=== PATIENT | female | born 1965 | race Caucasian/White ===

== ENCOUNTER → 2016-09-16 | Outpatient (CLI) | payer BC ==
--- NOTE | 2016-09-16 15:54 | US ---
EXAMINATION TYPE: US pelvic complete DATE OF EXAM: 09/16/2016 COMPARISON: Previous study dated 03/01/2016. CLINICAL HISTORY: N92.4 Preclimacteric menorrhagia. Endometrial thickness. TECHNIQUE: Transvaginal (TV) and Transabdominal (TA) Date of LMP: 01/30/2017 EXAM MEASUREMENTS: Uterus: 8.8 x 4.1 x5.3 cm Endometrial Stripe: 0.73 cm Right Ovary: 2.1x 4.0 x 11.1 cm Left Ovary: 3.0 x 1.5 x 2.6 cm Heterogenous uterus, nabothian cysts and calcifications visualized in cervix. 1. Uterus: Anteverted Heterogenous. 2. Endometrium: wnl 3. Right Ovary: wnl 4. Left Ovary: wnl Spectral, color and waveform doppler imaging shows good arterial and venous flow within the ovaries ; there is no evidence for ovarian torsion. 5. Bilateral Adnexa: wnl 6. Posterior cul-de-sac: wnl IMPRESSION: 1. UTERUS IS HETEROGENOUS. I COULD NOT EXCLUDE SOME DEGREE OF ADENOMYOSIS. 2. NABOTHIAN CYSTS IN BOTH LIPS OF THE CERVIX.
== END | disposition home or self-care (01) ==
LOC: RADUSWWP 14:20
PROVIDERS: ATTEND Family Medicine
DX: N88.8 Other specified noninflammatory disorders of cervix uteri (principal)
CPT/HCPCS: 76830; 76856

== ENCOUNTER → 2016-10-19 | Outpatient (CLI) | payer BC ==
--- NOTE | 2016-10-19 09:32 | US ---
EXAMINATION TYPE: US carotid duplex BILAT DATE OF EXAM: 10/19/2016 COMPARISON: NONE CLINICAL HISTORY: 51-year-old female with R09.89 BRUIT. On medication for HTN. TECHNIQUE: Carotid duplex ultrasound examination. Indirect Doppler criteria was utilized. FINDINGS: There is [id number] atherosclerotic change at the right bifurcation and mild at the left bifurc ation. EXAM MEASUREMENTS: RIGHT: Peak Systolic Velocity (PSV) cm/sec ----- Right CCA: 95.3 ----- Right ICA: 83.1 ----- Right ECA: 96.3 ICA/CCA ratio: 0.9 RIGHT: End Diastole cm/sec ----- Right CCA: 43.0 ----- Right ICA: 36.9 ----- Right ECA: 31.4 LEFT: Peak Systolic Velocity (PSV) cm/sec ----- Left CCA: 83.0 ----- Left ICA: 79.2 ----- Left ECA: 63.6 ICA/CCA ratio: 1.0 LEFT: End Diastole cm/sec ----- Left CCA: 34.5 ----- Left ICA: 41.3 ----- Left ECA: 14.2 VERTEBRALS (direction of flow): Right Vertebral: Antegrade Left Vertebral: Antegrade IMPRESSION: No hemodynamically significant stenosis appreciated in either internal carotid artery. Criteria for Assigning % of Stenosis / Diameter reduction (Estimation based on the indirect measurements of the internal carotid artery velocities (ICA PSV). 1. Normal (no stenosis)=ICA PSV < 125 cm/s: ratio < 2.0: ICA EDV<40 cm/s. 2. Less than 50% stenosis=ICA PSV < 125 cm/s: ratio < 2.0: ICA EDV<40 cm/s. 3. 50 to 69% stenosis=ICA PSV of 125 to 230 cm/s: ration 2.0 ? 4.0: ICA EDV 40-100 cm/s. 4. Greater than 70% stenosis to near occlusion= ICA PSV > 230 cm/s: ratio > 4.0: ICA EDV > 100 cm/s. 5. Near occlusion= ICA PSV velocities may be low or undetectable: variable ratio and ICA EDV. 6. Total occlusion=unable to detect flow.
== END | disposition home or self-care (01) ==
LOC: RADUSWWP 08:16
PROVIDERS: ATTEND Family Medicine
DX: R09.89 Other specified symptoms and signs involving the circulatory and respiratory systems (principal)
CPT/HCPCS: 93880

== ENCOUNTER 2017-05-06 12:31 | Emergency (ER) | payer BC ==
--- NOTE | 2017-05-06 13:21 | ED ---
General Adult HPI - General Chief complaint: Abdominal Pain Stated complaint: Abd Pain Time Seen by Provider: 05/06/17 13:04 Source: patient, family, RN notes reviewed Mode of arrival: wheelchair Limitations: no limitations - History of Present Illness Initial comments: Patient's a 51-year-old female who presents emergency room today with chief complaint of left upper quadrant pain over the last 3 weeks. Patient does admit that it's been a constant pain at times worse. States does radiate around to the back. She does not that at times she's noticed it's worse with her breathing. She states feels better more comfortable when she takes shallow breaths. Patient does admit that she went to the family doctor's office yesterday have it checked out. She states that she was given order a CAT scan. She states that it was increased swelling. She denies any feels that makes it better or worse. Admits to being a daily drinker. Denies any complaints or symptoms. Patient denies any recent fever, chills, shortness of breath, chest pain, back pain, nausea or vomiting, numbness or tingling, dysuria or hematuria , constipation or diarrhea, headaches or visual changes, or any other complaints. - Related Data Home Medications Medication Instructions Recorded Confirmed Loratadine [Claritin] 10 mg PO QAM 10/09/14 05/06/17 Omeprazole [PriLOSEC] 20 mg PO AC-BRKFST 10/09/14 05/06/17 Cholecalciferol [Vitamin D3] 1,000 unit PO W/SUPPER 12/06/14 05/06/17 Losartan [Cozaar] 50 mg PO QAM 12/06/14 05/06/17 amLODIPine [Norvasc] 5 mg PO W/SUPPER 12/06/14 05/06/17 Cyanocobalamin (Vitamin B-12) 1,000 mcg PO W/SUPPER 05/06/17 05/06/17 [Vitamin B-12] Multivitamin/Iron/Folic Acid 1 tab PO W/SUPPER 05/06/17 05/06/17 [Centrum Adults Tablet] Simvastatin [Zocor] 20 mg PO W/SUPPER 05/06/17 05/06/17 Allergies Allergy/AdvReac Type Severity Reaction Status Date / Time hydrocodone bitartrate AdvReac Nausea Verified 05/06/17 13:13 [From Vicodin] propoxyphene napsylate AdvReac Nausea Verified 05/06/17 13:13 [From Darvocet-N] Review of Systems ROS Statement: Those systems with pertinent positive or pertinent negative responses have been documented in the HPI. ROS Other: All systems not noted in ROS Statement are negative. Past Medical History Past Medical History: Eye Disorder, GERD/Reflux, Hyperlipidemia, Hypertension Additional Past Medical History / Comment(s): hx cervical herniated discs C4-5 and C 6-7. hiatal hernia,eye drops to help prevent glaucoma, History of Any Multi-Drug Resistant Organisms: None Reported Past Surgical History: No Surgical Hx Reported Additional Past Surgical History / Comment(s): 2009 colonoscopy with benign bx, EGD, neck surgery Past Anesthesia/Blood Transfusion Reactions: Postoperative Nausea & Vomiting ( PONV) Additional Past Anesthesia/Blood Transfusion Reaction / Comment(s): no hx blood transfusion. Past Psychological History: No Psychological Hx Reported Smoking Status: Current every day smoker Past Alcohol Use History: Daily Past Drug Use History: None Reported - Past Family History Father Family Medical History: Osteoarthritis (OA) Additional Family Medical History / Comment(s): Father is alive and is 86 yrs old. Mother Family Medical History: Liver Disease, Myocardial Infarction (ME) Additional Family Medical History / Comment(s): Mother 05/2014 of cirrhosis of the liver- she was 71 yrs old. She had a couple of MIs. General Exam - General Exam Comments Initial Comments: General: The patient is awake and alert, in no distress, and does not appear acutely ill. Eye: Pupils are equal, round and reactive to light, extra-ocular movements are intact. No nystagmus. There is normal conjunctiva bilaterally. No signs of icterus. Ears, nose, mouth and throat: There are moist mucous membranes and no oral lesions. Neck: The neck is supple, there is no tenderness or JVD. Cardiovascular: There is a regular rate and rhythm. No murmur, rub or gallop is appreciated. Respiratory: Lungs are clear to auscultation, respirations are non-labored, breath sounds are equal. No wheezes, stridor, rales, or rhonchi. Gastrointestinal: Soft, non-distended. Mild tenderness of the upper quadrant. No rebound tenderness. No guarding. No CVA tenderness. Musculoskeletal: Normal ROM, no tenderness. Strength 5/5. Sensation intact. Pulses equal bilaterally 2+. Neurological: A&O x 3. CN II-XII intact, There are no obvious motor or sensory deficits. Coordination appears grossly intact. Speech is normal. Skin: Skin is warm and dry and no rashes or lesions are noted. Psychiatric: Cooperative, appropriate mood & affect, normal judgment. Limitations: no limitations Course Vital Signs 05/06/17 12:49 Temperature 98.7 F Pulse Rate 99 Respiratory 18 Rate Blood Pressure 123/77 O2 Sat by Pulse 99 Oximetry EKG Findings - EKG Comments: EKG Findings:: EKG performed at 1332: Shows normal sinus rhythm at 90 bpm. MT interval 118. QRS 88. QT/QTC 364/445. No acute ST changes. Medical Decision Making - Medical Decision Making Patient labs are been reviewed and are unremarkable. Negative d-dimer. Negative cardiac enzymes. EKG shows normal sinus rhythm. Patient's chest x- rays negative. Ultrasound shows a right liver hepatic cyst. No other acute abnormalities. No evidence for cholelithiasis or cholecystitis. Patient's CT of the abdomen and pelvis is negative. - Lab Data Result diagrams: 05/06/17 13:29 05/06/17 13:29 Lab Results 05/06/17 05/06/17 05/06/17 Range/Units 13:29 13:29 13:29 WBC 7.8 (3.8-10.6) k/uL RBC 4.43 (3.80-5.40) m/uL Hgb 13.7 (11.4-16.0) gm/dL Hct 43.2 (34.0-46.0) % MCV 97.6 (80.0-100.0) fL MCH 31.0 (25.0-35.0) pg MCHC 31.7 (31.0-37.0) g/dL RDW 12.4 (11.5-15.5) % Plt Count 356 (150-450) k/uL Neutrophils % 69 % Lymphocytes % 20 % Monocytes % 7 % Eosinophils % 2 % Basophils % 1 % Neutrophils # 5.4 (1.3-7.7) k/uL Lymphocytes # 1.6 (1.0-4.8) k/uL Monocytes # 0.5 (0-1.0) k/uL Eosinophils # 0.1 (0-0.7) k/uL Basophils # 0.1 (0-0.2) k/uL PT (9.0-12.0) sec INR (<1.2) APTT (22.0-30.0) sec D-Dimer (<0.60) mg/L FEU Sodium 143 (137-145) mmol/L Potassium 4.1 (3.5-5.1) mmol/L Chloride 104 (98-107) mmol/L Carbon Dioxide 30 (22-30) mmol/L Anion Gap 9 mmol/L BUN 11 (7-17) mg/dL Creatinine 0.58 (0.52-1.04) mg/dL Est GFR (MDRD) Af Amer >60 (>60 ml/min/1.73 sqM) Est GFR (MDRD) Non-Af >60 (>60 ml/min/1.73 sqM) Glucose 103 H (74-99) mg/dL Calcium 10.1 (8.4-10.2) mg/dL Total Bilirubin 0.5 (0.2-1.3) mg/dL AST 25 (14-36) U/L ALT 35 (9-52) U/L Alkaline Phosphatase 108 (38-126) U/L Total Creatine Kinase 94 (30-135) U/L CK-MB (CK-2) 0.8 (0.0-2.4) ng/mL CK-MB (CK-2) Rel Index 0.9 Troponin I <0.012 (0.000-0.034) ng/mL Total Protein 7.0 (6.3-8.2) g/dL Albumin 4.5 (3.5-5.0) g/dL Amylase 50 (30-110) U/L Lipase 65 (23-300) U/L Urine Color Urine Appearance (Clear) Urine pH (5.0-8.0) Ur Specific [place] (1.001-1.035) Urine Protein (Negative) Urine Glucose (UA) (Negative) Urine Ketones (Negative) Urine Blood (Negative) Urine Nitrite (Negative) Urine Bilirubin (Negative) Urine Urobilinogen (<2.0) mg/dL Ur Leukocyte Esterase (Negative) Urine RBC (0-5) /hpf Urine WBC (0-5) /hpf Ur Squamous Epith Cells (0-4) /hpf Amorphous Sediment (None) /hpf 05/06/17 05/06/17 Range/Units 13:29 14:42 WBC (3.8-10.6) k/uL RBC (3.80-5.40) m/uL Hgb (11.4-16.0) gm/dL Hct (34.0-46.0) % MCV (80.0-100.0) fL MCH (25.0-35.0) pg MCHC (31.0-37.0) g/dL RDW (11.5-15.5) % Plt Count (150-450) k/uL Neutrophils % % Lymphocytes % % Monocytes % % Eosinophils % % Basophils % % Neutrophils # (1.3-7.7) k/uL Lymphocytes # (1.0-4.8) k/uL Monocytes # (0-1.0) k/uL Eosinophils # (0-0.7) k/uL Basophils # (0-0.2) k/uL PT 10.0 (9.0-12.0) sec INR 1.0 (<1.2) APTT 23.9 (22.0-30.0) sec D-Dimer 0.28 (<0.60) mg/L FEU Sodium (137-145) mmol/L Potassium (3.5-5.1) mmol/L Chloride (98-107) mmol/L Carbon Dioxide (22-30) mmol/L Anion Gap mmol/L BUN (7-17) mg/dL Creatinine (0.52-1.04) mg/dL Est GFR (MDRD) Af Amer (>60 ml/min/1.73 sqM) Est GFR (MDRD) Non-Af (>60 ml/min/1.73 sqM) Glucose (74-99) mg/dL Calcium (8.4-10.2) mg/dL Total Bilirubin (0.2-1.3) mg/dL AST (14-36) U/L ALT (9-52) U/L Alkaline Phosphatase (38-126) U/L Total Creatine Kinase (30-135) U/L CK-MB (CK-2) (0.0-2.4) ng/mL CK-MB (CK-2) Rel Index Troponin I (0.000-0.034) ng/mL Total Protein (6.3-8.2) g/dL Albumin (3.5-5.0) g/dL Amylase (30-110) U/L Lipase (23-300) U/L Urine Color Light Yellow Urine Appearance Cloudy H (Clear) Urine pH 7.0 (5.0-8.0) Ur Specific [place] 1.007 (1.001-1.035) Urine Protein Negative (Negative) Urine Glucose (UA) Negative (Negative) Urine Ketones Trace H (Negative) Urine Blood Negative (Negative) Urine Nitrite Negative (Negative) Urine Bilirubin Negative (Negative) Urine Urobilinogen <2.0 (<2.0) mg/dL Ur Leukocyte Esterase Negative (Negative) Urine RBC 1 (0-5) /hpf Urine WBC 1 (0-5) /hpf Ur Squamous Epith Cells 1 (0-4) /hpf Amorphous Sediment Rare H (None) /hpf Disposition Clinical Impression: Abdominal pain Disposition: HOME SELF-CARE Condition: Good Instructions: Abdominal Pain (ED) Additional Instructions: Please use medication as discussed. Please follow-up with family doctor in the next 2 days of symptoms have not improved. Please return to emergency room if the symptoms increase or worsen or for any other concerns. Referrals: Yuridia Moreno MD [Primary Care Provider] - 1-2 days Time of Disposition: 16:08
[2017-05-06 13:39] LABS: Basophils # (A) 0.1 k/uL (0-0.2); Basophils % (A) 1 %; Eosinophils # (A) 0.1 k/uL (0-0.7); Eosinophils % (A) 2 %; HCT 43.2 % (34.0-46.0); HGB 13.7 gm/dL (11.4-16.0); Lymphocytes # (A) 1.6 k/uL (1.0-4.8); Lymphocytes % (A) 20 %; MCHC 31.7 g/dL (31.0-37.0); MCV 97.6 fL (80.0-100.0); Mean Platelet Volume 7.3; Monocytes # (A) 0.5 k/uL (0-1.0); Monocytes % (A) 7 %; Neutrophils # (A) 5.4 k/uL (1.3-7.7); Neutrophils % (A) 69 %; Platelet Count 356 k/uL (150-450); RBC 4.43 m/uL (3.80-5.40); RDW 12.4 % (11.5-15.5); WBC 7.8 k/uL (3.8-10.6)
[2017-05-06 13:47] LABS: D-Dimer 0.28 mg/L FEU (<0.60)
[2017-05-06 13:48] LABS: ALT 35 U/L (9-52); AST 25 U/L (14-36); Albumin 4.5 g/dL (3.5-5.0); Alkaline Phosphatase 108 U/L (38-126); Amylase 50 U/L (30-110); Anion Gap 9 mmol/L; Blood Urea Nitrogen 11 mg/dL (7-17); Calcium 10.1 mg/dL (8.4-10.2); Carbon Dioxide 30 mmol/L (22-30); Chloride 104 mmol/L (98-107); Glucose 103 mg/dL (74-99); Lipase 65 U/L (23-300); Potassium 4.1 mmol/L (3.5-5.1); Sodium 143 mmol/L (137-145); Total Bilirubin 0.5 mg/dL (0.2-1.3)
[2017-05-06 13:51] LABS: Partial Thromboplastin Time 23.9 sec (22.0-30.0)
--- NOTE | 2017-05-06 13:56 | XR ---
EXAMINATION TYPE: XR chest 2V DATE OF EXAM: 05/06/2017 COMPARISON: 01/17/2015 INDICATION: Pain chest pain TECHNIQUE: Frontal and lateral views of the chest are obtained. FINDINGS: The heart size is normal. The pulmonary vasculature is normal. The lungs are clear. Prior anterior cervical fusion is evident. IMPRESSION: 1. No acute pulmonary process.
[2017-05-06 14:06] LABS: Creatine Kinase 94 U/L (30-135)
[2017-05-06 14:19] LABS: Creatine Kinase MB 0.8 ng/mL (0.0-2.4); Troponin I <0.012 ng/mL (0.000-0.034)
--- NOTE | 2017-05-06 14:36 | US ---
EXAMINATION TYPE: US abdomen limited DATE OF EXAM: 05/06/2017 COMPARISON: Pain CLINICAL HISTORY: Pain. LUQ pain, NPO, look at GB and pancreas EXAM MEASUREMENTS: Liver Length: 14.8 cm Gallbladder Wall: 0.2 cm CHD: 0.3 cm Right Kidney: 11.5 x 4.6 x 4.9 cm Pancreas: wnl Liver: Slightly heterogenous . There is a hypoechoic area in the right lobe liver with good through transmission posterior wall enhancement. A 0.8 x 0.9 x 0.4 cm cysts are present. Gallbladder: wnl Evidence for sonographic Rodríguez's sign: neg CBD: Obscured by overlying bowel gas CHD: wnl Right Kidney: wnl IMPRESSION: 1. Simple appearing hepatic cyst right lobe liver.
[2017-05-06 14:57] LABS: Amorphous Sediment,Urine Rare /hpf; Appearance,Urine Cloudy (Clear); Bilirubin,Urine Negative (Negative); Blood,Urine Negative (Negative); Color,Urine Light Yellow; Glucose,Urine (UA) Negative (Negative); Ketones,Urine Trace (Negative); Leukocyte Esterase,Urine Negative (Negative); Nitrite,Urine Negative (Negative); Protein,Urine Negative (Negative); RBC,Urine 1 /hpf (0-5); Specific Gravity,Urine 1.007 (1.001-1.035); Squamous Epithelial Cell,Urine 1 /hpf (0-4); Urobilinogen,Urine <2.0 mg/dL (<2.0); WBC,Urine 1 /hpf (0-5)
[2017-05-06] MEDS ORDERED: RX INFO: IV CONTRAST WAS GIVEN 1 EACH MISC MISCELLANE PRN (15:09)
--- NOTE | 2017-05-06 15:40 | CT ---
EXAMINATION TYPE: CT abdomen pelvis w con DATE OF EXAM: 05/06/2017 COMPARISON: 03/30/2014 INDICATION: Left upper quadrant pain. DLP: 441.8 mGycm, Automated exposure control for dose reduction was used. CONTRAST: 100 mL of Omnipaque 300. Study performed without Oral Contrast TECHNIQUE: Axial images were obtained from above the diaphragm to the pubic rami in the axial plane a t 5 mm thick sections. Reconstructed images are reviewed on the computer in the coronal plane. FINDINGS: Limited CT sections are obtained the lung bases. The lung bases are clear. CT ABDOMEN: Liver: Normal Spleen: Normal Pancreas: Normal Adrenal glands: The adrenal glands are normal. Gallbladder: Normal Kidneys: No masses are evident. No hydronephrosis is present. No cysts are present. Delayed images were obtained through the kidneys, which remain unremarkable. Aorta: Vascular calcification is within the aorta. Inferior vena cava: Normal. CT PELVIS: Loops of bowel within the abdomen and pelvis are normal. Sigmoid diverticuli are present. Appendix: Normal as visualized. Urinary bladder: Decompressed with limited evaluation Genitourinary structures: Uterus and adnexal regions are unremarkable. Osseous structures: No suspicious lytic or sclerotic lesions. Some sclerosis along the sacroiliac clovis nts. Degenerative changes are present L5-S1 level. IMPRESSIONS: 1. Diverticulosis without acute diverticulitis. 2. No suspicious abnormality to account for left upper quadrant pain.
[2017-05-06 16:34] VITALS: BP 128/60; PULSE 93; RESP 16; TEMP 97.8
== END 2017-05-06 16:33 | disposition home or self-care (01) ==
LOC: EC 12:31
DX: R10.12 Left upper quadrant pain (principal); K76.89 Other specified diseases of liver; M54.9 Dorsalgia, unspecified; R19.02 Left upper quadrant abdominal swelling, mass and lump; E78.5 Hyperlipidemia, unspecified; I10 Essential (primary) hypertension; K21.9 Gastro-esophageal reflux disease without esophagitis; F17.200 Nicotine dependence, unspecified, uncomplicated; Z79.899 Other long term (current) drug therapy; Z88.5 Allergy status to narcotic agent; Z83.79 Family history of other diseases of the digestive system
CPT/HCPCS: 36415; 93005; 85379; 80053; 82150; 82550; 82553; 83690; 84484; 85025; 85610; 85730; 81001; 71046; 76705; 74177; 99284; Q9967

== ENCOUNTER → 2017-06-03 | Day surgery (SDC) | payer BC ==
[2017-06-02 08:39] VITALS: BMI 28.1
[~2017-06-03] MED LIST: LACTATED RINGERS 1,000 ML IV SCH; LIDOCAINE 1% 20 ML VIAL (10MG/ML) FOR IV START INTRADERMA ONE; LIDOCAINE 1% INJ 10MG/ML (20 ML MDV) ONE; PROPOFOL 10 MG/ML 20 ML VIAL IV ONE
[2017-06-03 08:57] VITALS: TEMP 98.1
--- NOTE | 2017-06-03 09:44 | P.PCN ---
Date of Procedure: 06/03/17 Procedure(s) Performed: BRIEF HISTORY: Patient is a 51-year-old, pleasant, 8 female, scheduled for an upper endoscopy as a part of evaluation of epigastric pain for the last few months duration. She does have long-standing history of GERD and has been on Prilosec 20 mg daily for almost 4 years duration.. PROCEDURE PERFORMED: Esophagogastroduodenoscopy with biopsy. PREOPERATIVE DIAGNOSIS: Long-standing history of GERD/epigastric pain. IV sedation per anesthesia. PROCEDURE: After informed consent was obtained, the patient was brought into the endoscopy unit. IV sedation was administered by Anesthesia under continuous monitoring. Initially the Olympus GIF-140 video endoscope was inserted into the mouth. Esophagus intubated without any difficulty. It was gradually advanced into the stomach and duodenum and carefully examined. The bulb and the second part of the duodenum appeared normal. The scope at this time was withdrawn to the stomach, adequately insufflated with air, and upon careful examination, mucosa of the antrum, had mild gastritis and biopsies were done from this area. The body, cardia and the fundus appeared normal. The scope was then withdrawn into the esophagus. The GE junction was located at 39 cm from the incisors. The esophagus appeared normal. There were no erosions or ulcerations seen , biopsies were done from the esophagus to rule out eosinophilic esophagitis and the patient tolerated the procedure well. IMPRESSION: 1. Mild antral gastritis. 2. Normal-appearing esophagus with no evidence of esophagitis or esophageal stricture. RECOMMENDATIONS: The findings of this examination were discussed with the patient as well as her family. She was advised to follow with the biopsy results. She will increase the Prilosec to 20 mg twice daily for 8 weeks to see if she has any improvement in his symptoms. If she still has persistent epigastric pain she was advised to follow up in office for further evaluation.
[2017-06-03 09:48] VITALS: PULSE 87
[2017-06-03 10:03] VITALS: BP 136/79; RESP 16
== END | disposition home or self-care (01) ==
LOC: ORWHC2ENDO 07:55
PROVIDERS: ATTEND Internal Medicine Gastroenterology
DX: K29.50 Unspecified chronic gastritis without bleeding (principal); K21.0 Gastro-esophageal reflux disease with esophagitis; I10 Essential (primary) hypertension; E78.5 Hyperlipidemia, unspecified; Z72.0 Tobacco use; M50.30 Other cervical disc degeneration, unspecified cervical region; Z79.899 Other long term (current) drug therapy; Z88.5 Allergy status to narcotic agent
CPT/HCPCS: 81025; 88305; 43239; J2001; J2704

== ENCOUNTER → 2017-06-30 | Outpatient (CLI) | payer BC ==
--- NOTE | 2017-06-30 16:32 | BD ---
EXAMINATION TYPE: MG DEXA axial skeleton. DATE OF EXAM: 06/30/2017 CLINICAL HISTORY: 52-year-old female postmenopausal screening Height: 61 Weight: 145 FRAX RISK QUESTIONS: Alcohol (3 or more units per day): no Family History (Parent hip fracture): yes, mother Glucocorticoids (More than 3mos): no (Ex: prednisone, prednisolone, methylprednisolone, dexamethasone, and hydrocortisone). History of Fracture in Adulthood: no Secondary Osteoporosis: 1. Type 1 Diabetes: no 2. Hyperthyroidism: no 3. Menopause before 45: no 4. Malnutrition: no 5. Chronic liver disease: no Rheumatoid Arthritis: no Current Tobacco Use: yes RISK FACTORS HISTORY OF: Family History of Osteoporosis: no Active: yes Diet low in dairy products/other sources of calcium: somewhat; but servings several times a week Postmenopausal woman: yes Take estrogen and/or progesterone medications: no Lost more than 2 inches in height since high school: no Frequent falls: no Poor Health: no Hyperparathyroidism: no Adrenal Insufficiency: no MEDICATIONS: Prednisone or other steroids: no Thyroid Medications: no Osteoporosis Medications: no Additional Medications: cholesterol meds, blood pressure meds Additional History: post menopausal symptoms, EXAM MEASUREMENTS: Bone mineral densitometry was performed using the [employer] System. Bone mineral density as measured about the Lumbar spine is: ----- L1-L4(G/cm2): 1.053 T Score Values are as follows: ----- L2: -1.1 ----- L3: -1.2 ----- L4: -1.2 ----- L1-L4: -1.1 Bone mineral density BASELINE Bone mineral density about the R hip (g/cm2): 0.843 Bone mineral density about the L hip (g/cm2): 0.859 T Score values are as follows: -----R Neck: -1.4 -----L Neck: -1.3 -----R Total: -1.2 -----L Total: -1.2 Bone mineral density BASELINE IMPRESSION: Osteopenia (T Score between -2.5 and -1). There is slightly increased risk of fracture and the patient may be considered for treatment. Re-Screen 2-5 years. NOTE: T-SCORE=SD OF THE YOUNG ADULT MEAN.
--- NOTE | 2017-07-01 11:39 | MM ---
Reason for exam: screening (asymptomatic). Last mammogram was performed 1 year and 4 months ago. History: Patient is postmenopausal. Physical Findings: A clinical breast exam by your physician is recommended on an annual basis and results should be correlated with mammographic findings. MG Screening Mammo w CAD Bilateral CC and MLO view(s) were taken. Prior study comparison: March 08, 2016, bilateral MG screening mammo w CAD. March 06, 2015, bilateral MG screening mammo w CAD. The breast tissue is extremely dense which could obscure a lesion on mammography. No significant changes when compared with prior studies. ASSESSMENT: Benign, BI-RAD 2 RECOMMENDATION: Routine screening mammogram of both breasts in 1 year.
== END | disposition home or self-care (01) ==
LOC: RADMAMWWP 10:11
PROVIDERS: ATTEND Family Medicine
DX: Z12.31 Encounter for screening mammogram for malignant neoplasm of breast (principal); M85.80 Other specified disorders of bone density and structure, unspecified site; N95.1 Menopausal and female climacteric states
CPT/HCPCS: 77067; 77080

== ENCOUNTER → 2018-07-14 | Outpatient (CLI) | payer BC ==
--- NOTE | 2018-07-14 10:54 | ECHOF ---
Referral Reason:R07.9 Chest pain MEASUREMENTS -------- HEIGHT: 154.9 cm WEIGHT: 64.9 kg BP: IVSd: 1.2 cm (0.6 - 1.1) LVIDd: 3.8 cm (3.9 - 5.3) LVPWd: 1.3 cm (0.6 - 1.1) IVSs: 1.3 cm LVIDs: 2.7 cm LVPWs: 1.9 cm LAESV Index (A-L): 25.40 ml/m Ao Diam: 2.5 cm (2.0 - 3.7) AV Cusp: 1.8 cm (1.5 - 2.6) LA Diam: 3.1 cm (2.7 - 3.8) MV EXCURSION: 13.666 mm (> 18.000) MV EF SLOPE: 85 mm/s (70 - 150) EPSS: 0.3 cm MV E Dharmesh: 0.99 m/s MV DecT: 197 ms MV A Dharmesh: 1.07 m/s MV E/A Ratio: 0.92 AR PHT: 352 ms RAP: 5.00 mmHg RVSP: 9.56 mmHg FINDINGS -------- Sinus rhythm. This was a technically good study. The left ventricular size is normal. There is mild concentric left ventricular hypertrophy. Overa ll left ventricular systolic function is normal with, an EF between 55 - 60 %. The right ventricle is normal in size. Normal LA size by volume 22+/-6 ml/m2. The right atrial size is normal. The aortic valve is trileaflet and appears structurally normal. The mitral valve is normal. There is trace mitral regurgitation. The tricuspid valve appears structurally normal. Trace tricuspid regurgitation present. The right ventricular systolic pressure, as measured by Doppler, is 9.56mmHg. There is no pulmonic regurgitation present. The aortic root size is normal. Normal inferior vena cava with normal inspiratory collapse consistent with estimated right atrial pre ssure of 5 mmHg. There is a trivial pericardial effusion present. CONCLUSIONS -------- 1. Sinus rhythm. 2. This was a technically good study. 3. The left ventricular size is normal. 4. There is mild concentric left ventricular hypertrophy. 5. Overall left ventricular systolic function is normal with, an EF between 55 - 60 %. 6. The right ventricle is normal in size. 7. Normal LA size by volume 22+/-6 ml/m2. 8. The right atrial size is normal. 9. The aortic valve is trileaflet and appears structurally normal. 10. The mitral valve is normal. 11. There is trace mitral regurgitation. 12. The tricuspid valve appears structurally normal. 13. Trace tricuspid regurgitation present. 14. The right ventricular systolic pressure, as measured by Doppler, is 9.56mmHg. 15. There is no pulmonic regurgitation present. 16. The aortic root size is normal. 17. Normal inferior vena cava with normal inspiratory collapse consistent with estimated right atrial pressure of 5 mmHg. 18. There is a trivial pericardial effusion present. APPRENTICE PAINTER HAND: Meli Brewer RDCS
--- NOTE | 2018-07-14 12:36 | ECHOS ---
STRESS ECHOCARDIOGRAM DATE OF SERVICE: 07/14/2018 INDICATIONS: Chest pain. MEDICATIONS: Simvastatin. BASELINE HEART RATE: 79 BASELINE BLOOD PRESSURE: 154/80 MAXIMUM HEART RATE: 150 MAXIMUM BLOOD PRESSURE: 218/78 85% MPHR: 142 100% MPHR: 167 METS: 7.1 MAXIMUM STAGE REACHED: II TOTAL EXERCISE TIME: 5 minutes 15 seconds CLINICAL INFORMATION: Baseline EKG revealed a normal sinus rhythm without significant ST-T changes. Patient walked on standard Luiz protocol for 5 minutes 15 seconds achieved a maximal heart rate of 150 beats per minute which is more than 85% of predicted maximal. Resting heart rate was 79 beats per minute. Resting blood pressure was 154/80 and peak blood pressure was 218/78. EKG did not reveal any ST-segment changes to indicate ischemia. There was no angina or arrhythmia. By EKG criteria, this is a negative stress test with limited exercise capacity. There was a hypertensive response to exercise. Baseline echo images revealed normal wall motion and wall thickening of all segments. At peak exercise there was good augmentation of left ventricular wall motion and wall thickening of all segments suggesting that there is no evidence of stress-induced ischemia on this study. FINAL IMPRESSION: 1. By EKG criteria, this is a negative stress test with limited exercise capacity. There was hypertensive response to exercise noted. 2. Normal stress echocardiogram. MMODL / IJN: [id number] /
== END | disposition home or self-care (01) ==
LOC: RADNMMAIN 09:07
PROVIDERS: ATTEND Family Medicine
DX: I51.7 Cardiomegaly (principal); R07.9 Chest pain, unspecified
CPT/HCPCS: 93306; 93351

== ENCOUNTER → 2018-08-02 | Outpatient (CLI) | payer BC ==
--- NOTE | 2018-08-03 09:25 | MM ---
Reason for exam: screening (asymptomatic). Last mammogram was performed 1 year and 1 month ago. History: Patient is postmenopausal. Physical Findings: A clinical breast exam by your physician is recommended on an annual basis and results should be correlated with mammographic findings. MG Screening Mammo w CAD Bilateral CC and MLO view(s) were taken. Prior study comparison: June 30, 2017, bilateral MG screening mammo w CAD. March 08, 2016, bilateral MG screening mammo w CAD. The breast tissue is heterogeneously dense. This may lower the sensitivity of mammography. There is chronic nodularity in the left breast. No significant changes when compared with prior studies. ASSESSMENT: Negative, BI-RAD 1 RECOMMENDATION: Routine screening mammogram of both breasts in 1 year.
== END ==
LOC: RADMAMWWP 10:53
PROVIDERS: ATTEND Family Medicine
DX: Z12.31 Encounter for screening mammogram for malignant neoplasm of breast (principal)
CPT/HCPCS: 77067

== ENCOUNTER → 2019-09-05 | Outpatient (CLI) | payer BC ==
--- NOTE | 2019-09-05 14:46 | US ---
EXAMINATION TYPE: US thyroid st tissue head/neck DATE OF EXAM: 09/05/2019 COMPARISON: NONE CLINICAL HISTORY: E04.9 goiter of thyoid. Patient states doctor felt left nodule. Patient states hav ing a left neck cyst removed. GLAND SIZE: Right Lobe: 4.7 x 1.1 x 1.2 cm Overall Parenchyma: homogenous Left Lobe: 3.8 x 1.4 x 1.3 cm Overall Parenchyma: homogeneous Isthmus Thickness: 0.5 cm NODULES RIGHT: # of nodules measured on right: 1 1. 0.3 X 0.4 x 0.3 cm cystic nodule at the mid pole with well-defined margins. This nodule is wide r than tall and shows no intranodular vascularity. Prior size: No prior LEFT: # of nodules measured on left: 0 ISTHMUS: # of nodules measured in the isthmus: No nodule Bilateral neck scanned, no evidence of lymphadenopathy. IMPRESSION: 4 mm right thyroid nodule likely related to a cyst.. No left-sided thyroid nodules seen.
== END | disposition home or self-care (01) ==
LOC: RADUSWWP 14:10
PROVIDERS: ATTEND Family Medicine
DX: E04.1 Nontoxic single thyroid nodule (principal)
CPT/HCPCS: 76536

== ENCOUNTER → 2020-02-15 | Day surgery (SDC) | payer BC ==
[2020-02-13 15:21] VITALS: BMI 31.2
[~2020-02-15] MED LIST changes: +LIDOCAINE 1% (10MG/ML) FOR IV START INTRADERMA ONE; -LIDOCAINE 1% 20 ML VIAL (10MG/ML) FOR IV START INTRADERMA ONE
--- NOTE | 2020-02-15 09:01 | P.PCN ---
Date of Procedure: 02/15/20 Procedure(s) Performed: Brief history: Patient is a pleasant 54-year-old white female scheduled for an elective upper endoscopy as well as colonoscopy as a part of evaluation of GERD and intermittent rectal bleeding for the last 1 month duration Procedure performed: Esophagogastroduodenoscopy with biopsy Colonoscopy with biopsy Preoperative diagnosis: GERD Intermittent rectal bleeding Anesthesia: [facility] Procedure: After informed consent was obtained from the patient was brought into the endoscopy unit and IV sedation was administered by anesthesia under continuous monitoring. Initially upper endoscopy was done. The Olympus GF 160 video endoscope was inserted inserted into the mouth and esophagus intubated without any difficulty and was gradually advanced into the stomach and duodenum and carefully examined. The bulb and second part of the duodenum appeared normal. The scope was then withdrawn into the stomach adequately insufflated with air and upon careful examination the antrum and mild gastritis and biopsies were done from this area. body, cardia and fundus appeared normal. The scope was then withdrawn into the esophagus. The GE junction was located at 40 cm to the incisors. small sliding type hiatal hernia noted It appeared regular with no erythema erosions or ulcerations. Rest of the esophagus appeared normal. Patient tolerated the procedure well. At this time the patient continued to remain sedation. Initial digital rectal examination was normal. Olympus CF 160 video colonoscope was then inserted into the rectum and gradually advanced to the cecum without any difficulty. Careful examination was performed as the scope was gradually being withdrawn. The prep was excellent. terminal ileum appeared normal. The cecum, ascending colon, transverse colon, descending colon, sigmoid colon appeared normal. There was proctitis noted in the distal rectum extending to 30 cm from the anal verge with erythema and friability of this and with mild colitis and biopsies were done from this area. Retroflexion was performed in the rectum and no lesions were noted. Patient tolerated the procedure well. Impression: 1. Upper Endoscopy revealed mild antral gastritis and small hiatal hernia 2. Colonoscopy revealed mild distal proctitis with mucosal erythema and friability involving the rectum 15 cm from the anal verge, status post multiple biopsies Recommendations: Findings of this examination were discussed with the patient as well as. Her family. She was advised to follow with the biopsy results. He will be seen in office in 2 weeks.
[2020-02-15 09:06] VITALS: RESP 16
[2020-02-15 09:28] VITALS: BP 108/56; PULSE 66
== END ==
LOC: ORWHC2ENDO 07:29
PROVIDERS: ATTEND Internal Medicine Gastroenterology
DX: K29.50 Unspecified chronic gastritis without bleeding (principal); K52.9 Noninfective gastroenteritis and colitis, unspecified; K44.9 Diaphragmatic hernia without obstruction or gangrene; K21.9 Gastro-esophageal reflux disease without esophagitis; K62.89 Other specified diseases of anus and rectum; I10 Essential (primary) hypertension; E78.5 Hyperlipidemia, unspecified; Z79.01 Long term (current) use of anticoagulants; Z79.899 Other long term (current) drug therapy; Z88.5 Allergy status to narcotic agent; Z87.891 Personal history of nicotine dependence
CPT/HCPCS: 88305; 45380; 43239; J2001; J2704

== ENCOUNTER → 2020-03-13 | Outpatient (CLI) | payer BC ==
--- NOTE | 2020-03-14 14:43 | MM ---
Reason for exam: screening (asymptomatic). Last mammogram was performed 1 year and 7 months ago. History: Patient is postmenopausal. Physical Findings: A clinical breast exam by your physician is recommended on an annual basis and results should be correlated with mammographic findings. MG Screening Mammo w CAD Bilateral CC and MLO view(s) were taken. Prior study comparison: August 02, 2018, bilateral MG screening mammo w CAD. June 30, 2017, bilateral MG screening mammo w CAD. The breast tissue is heterogeneously dense. This may lower the sensitivity of mammography. There is chronic nodularity in the left breast. No significant changes when compared with prior studies. ASSESSMENT: Benign, BI-RAD 2 RECOMMENDATION: Routine screening mammogram of both breasts in 1 year.
== END | disposition home or self-care (01) ==
LOC: RADMAMWWP 07:50
PROVIDERS: ATTEND Family Medicine
DX: Z12.31 Encounter for screening mammogram for malignant neoplasm of breast (principal)
CPT/HCPCS: 77067

== ENCOUNTER → 2020-06-13 | Outpatient (CLI) | payer BC ==
--- NOTE | 2020-06-13 10:51 | US ---
EXAMINATION TYPE: US thyroid st tissue head/neck DATE OF EXAM: 06/13/2020 COMPARISON: Thyroid SEPTEMBER 05, 2019 CLINICAL HISTORY: E04.9 Goiter. GLAND SIZE: Right Lobe: 4.8 x 1.7 x 1.3 cm Overall Parenchyma: homogenous Left Lobe: 4.2 x 1.4 x 1.3 cm Overall Parenchyma: homogeneous Isthmus Thickness: 0.3 cm NODULES RIGHT: # of nodules measured on right: 1 1. 0.4 X 0.2 x 0.3 cm, mid mid, cystic or almost completely cystic, anechoic nodule, which is wider than tall, with smooth margins, without echogenic foci. Prior size: 0.3 x 0.3 x 0.3 cm LEFT: # of nodules measured on left: 0 ISTHMUS: # of nodules measured in the isthmus: 0 Bilateral neck scanned, no evidence of lymphadenopathy. Homogeneous normal-sized thyroid with stable 3 mm cystic nodule right thyroid lobe. IMPRESSION: As above. No new suspicious nodules.
== END ==
LOC: RADUSWWP 09:53
PROVIDERS: ATTEND Family Medicine
DX: E04.9 Nontoxic goiter, unspecified (principal)
CPT/HCPCS: 76536

== ENCOUNTER → 2020-06-13 | Outpatient (CLI) | payer BC ==
--- NOTE | 2020-06-13 10:50 | US ---
EXAMINATION TYPE: US carotid duplex BILAT DATE OF EXAM: 06/13/2020 COMPARISON: US 2017. CLINICAL HISTORY: R09.89 Bruit. EXAM MEASUREMENTS: RIGHT: Peak Systolic Velocity (PSV) cm/sec ----- Right CCA: 71.2 ----- Right ICA: 74.7 ----- Right ECA: 96.3 ICA/CCA ratio: 1.0 RIGHT: End Diastole cm/sec ----- Right CCA: 28.4 ----- Right ICA: 41.5 ----- Right ECA: 27.0 LEFT: Peak Systolic Velocity (PSV) cm/sec ----- Left CCA: 91.9 ----- Left ICA: 80.8 ----- Left ECA: 94.1 ICA/CCA ratio: 0.9 LEFT: End Diastole cm/sec ----- Left CCA: 33.6 ----- Left ICA: 38.9 ----- Left ECA: 22.6 VERTEBRALS (direction of flow): Right Vertebral: Antegrade Left Vertebral: Antegrade Rhythm: Normal No significant stenosis seen. Extensive shadowing plaque at bilateral bulbs. Moderate to severe plaque at bilateral carotid bulbs appears more prominent from 2017 study but veloc ity measurements and ratios in the visualized portion of both internal carotid arteries appears withi n normal limits IMPRESSION: [id number] atherosclerotic changes without hemodynamically significant stenosis clearly seen in either internal carotid artery . Criteria for Assigning % of Stenosis / Diameter reduction (Estimation based on the indirect measurements of the internal carotid artery velocities (ICA PSV). 1. Normal (no stenosis)=ICA PSV < 125 cm/s: ratio < 2.0: ICA EDV<40 cm/s. 2. Less than 50% stenosis=ICA PSV < 125 cm/s: ratio < 2.0: ICA EDV<40 cm/s. 3. 50 to 69% stenosis=ICA PSV of 125 to 230 cm/s: ration 2.0 ? 4.0: ICA EDV 40-100 cm/s. 4. Greater than 70% stenosis to near occlusion= ICA PSV > 230 cm/s: ratio > 4.0: ICA EDV > 100 cm/s. 5. Near occlusion= ICA PSV velocities may be low or undetectable: variable ratio and ICA EDV. 6. Total occlusion=unable to detect flow.
== END ==
LOC: RADUSWWP 09:31
PROVIDERS: ATTEND Family Medicine
DX: I65.23 Occlusion and stenosis of bilateral carotid arteries (principal)
CPT/HCPCS: 93880

== ENCOUNTER → 2020-06-27 | Outpatient (CLI) | payer BC ==
--- NOTE | 2020-06-27 16:05 | US ---
EXAMINATION TYPE: US venous doppler duplex LE LT DATE OF EXAM: 06/27/2020 3:48 PM COMPARISON: NONE CLINICAL HISTORY: 55-year-old female M79.605 pain in left lower limb. SIDE PERFORMED: Left TECHNIQUE: The lower extremity deep venous system is examined utilizing real time linear array sonog abdulkadir with graded compression, doppler sonography and color-flow sonography. FINDINGS: VESSELS IMAGED: Common Femoral Vein Deep Femoral Vein Greater Saphenous Vein * Femoral Vein Popliteal Vein Small Saphenous Vein * Proximal Calf Veins Posterior tibial veins (* superficial vessels) Left Leg: Negative for DVT IMPRESSION: No evidence for DVT within the left lower extremity.
== END | disposition home or self-care (01) ==
LOC: RADUSWWP 15:26
PROVIDERS: ATTEND Nurse Practitioner Gerontology
DX: M79.605 Pain in left leg (principal)

== ENCOUNTER → 2021-09-22 | Outpatient (CLI) | payer BC ==
--- NOTE | 2021-09-22 19:09 | BD ---
EXAMINATION TYPE: Axial Bone Density DATE OF EXAM: 09/22/2021 COMPARISON: 06/30/2017 CLINICAL HISTORY: 56 years year old Female. ICD-10 CODE: N951 POST MENOPAUSAL SYMPTOMS Height: 60.5 IN Weight: 171 LBS RISK FACTORS HISTORY OF: Active: YES Postmenopausal woman: AGE 52 MEDICATIONS: Additional Medications: VIT D, PRILOSEC, BLOOD PRESSURE , SIMVASTATIN, VIT B12, ALLERGY MEDS, COLITIS MEDS EXAM MEASUREMENTS: Bone mineral densitometry was performed using the [employer] System. Bone mineral density as measured about the Lumbar spine is: ----- L1-L4(G/cm2): 1.015 T Score Values are as follows: ----- L1: -1.1 ----- L2: -1.4 ----- L3: -1.5 ----- L4: -1.7 ----- L1-L4: -1.4 Bone mineral density has: Decreased -4.0% since study of: 06/30/2017 Bone mineral density about the R hip (g/cm2): 0.770 Bone mineral density about the L hip (g/cm2): 0.810 T Score values are as follows: -----R Neck: -1.9 -----L Neck: -1.6 -----R Total: -1.5 -----L Total: -1.4 Bone mineral density has: Decreased -3.3% since study of: 07/30/2017 FRAX%s: The graph provided illustrates a 7.6 chance for a major osteoporotic fx and a 0.8 chance for the hips probability for fx in 10 years time. IMPRESSION: Osteopenia (T Score between -2.5 and -1). There is slightly increased risk of fracture and the patient may be considered for treatment. Re-Screen 2-5 years. NOTE: T-SCORE=SD OF THE YOUNG ADULT MEAN.
--- NOTE | 2021-09-24 07:25 | MM ---
Reason for Exam: Screening (asymptomatic). Last mammogram was performed 1 year(s) and 6 month(s) ago. Patient History: Menarche at age 14. First Full-Term at age 27. Postmenopausal. Risk Values: Kaylan 5 year model risk: 1.2%. NCI Lifetime model risk: 8.1%. Prior Study Comparison: 06/30/2017 Bilateral Screening Mammogram, [facility]. 08/02/2018 Bilateral Screening Mammogram, [facility]. 03/13/2020 Bilateral Screening Mammogram, [facility]. Tissue Density: The breast tissue is heterogeneously dense. This may lower the sensitivity of mammography. Findings: Analyzed By CAD. Chronic nodularity is within the left breast. No suspicious groups of microcalcifications, spiculated or lobular masses, architectural distortion or other secondary signs of malignancy are mammographically apparent. Overall Assessment: Benign, BI-RAD 2 Management: Screening Mammogram of both breasts in 1 year. A negative mammogram report should not preclude additional follow up of suspicious palpable abnormalities. Patient should continue monthly self breast exam. A clinical breast exam by your physician is recommended on an annual basis and results should be correlated with mammographic findings. Electronically signed and approved by: Dano Gautam D.O. Radiologis
== END | disposition home or self-care (01) ==
LOC: RADMAMWWP 07:00
PROVIDERS: ATTEND Family Medicine
DX: Z12.31 Encounter for screening mammogram for malignant neoplasm of breast (principal); M85.89 Other specified disorders of bone density and structure, multiple sites; Z80.3 Family history of malignant neoplasm of breast
CPT/HCPCS: 77067; 77080

== ENCOUNTER → 2021-11-05 | Outpatient (CLI) | payer BC ==
[2021-11-05 18:47] LABS: Basophils # (A) 0.06 X 10*3/uL (0.00-0.10); Basophils % (A) 1.1 %; Eosinophils # (A) 0.29 X 10*3/uL (0.04-0.35); Eosinophils % (A) 5.2 %; HCT 38.1 % (37.2-46.3); HGB 12.6 g/dL (12.0-15.0); Immature Grans, Automated 0.4 %; Lymphocytes # (A) 1.46 X 10*3/uL (0.90-5.00); Lymphocytes % (A) 26.4 %; MCH 30.8 pg (27.0-32.0); MCHC 33.1 g/dL (32.0-37.0); MCV 93.2 fL (80.0-97.0); Mean Platelet Volume 10.7 fL (9.5-12.2); Monocytes # (A) 0.49 X 10*3/uL (0.20-1.00); Monocytes % (A) 8.9 %; NRBC Per 100 WBC 0 /100 WBCS (0.0-0.0); Neutrophils # (A) 3.21 X 10*3/uL (1.80-7.70); Platelet Count 335 X 10*3/uL (140-440); RBC 4.09 X 10*6/uL (4.10-5.20); RDW 13.1 % (11.5-14.5); WBC 5.53 X 10*3/uL (4.50-10.00)
[2021-11-06 01:12] LABS: % Iron Saturation 23.52 (12.00-45.00); ALT 31 U/L (8-44); AST 32 U/L (13-35); African American GFR (CKD) 112.3 (60.0-200.0); Albumin 4.2 g/dL (3.8-4.9); Albumin/Globulin Ratio 1.75 (1.60-3.17); Alkaline Phosphatase 89 U/L (41-126); BUN/Creat Ratio 19.14 Ratio (12.00-20.00); Blood Urea Nitrogen 13.4 mg/dL (9.0-27.0); Calcium 9.3 mg/dL (8.7-10.3); Carbon Dioxide 20.9 mmol/L (20.0-27.5); Chloride 106 mmol/L (96-109); Globulin 2.4 g/dL (1.6-3.3); Glucose 97 mg/dL (70-110); Iron 87 ug/dL (50-170); Non-African American GFR(CKD) 96.9 (60.0-200.0); Sodium 143 mmol/L (135-145); Total Bilirubin <0.15 mg/dL (0.30-1.20); Total Iron Binding Capacity 368 ug/dL (228-460); Total Protein 6.6 g/dL (6.2-8.2)
== END | disposition home or self-care (01) ==
LOC: LABWHC1 09:24
PROVIDERS: ATTEND Family Medicine
DX: I10 Essential (primary) hypertension (principal); E87.8 Other disorders of electrolyte and fluid balance, not elsewhere classified; D50.9 Iron deficiency anemia, unspecified; E04.9 Nontoxic goiter, unspecified
CPT/HCPCS: 36415; 80053; 83540; 83550; 83735; 84439; 84443; 84480; 85025

== ENCOUNTER → 2021-12-04 | Outpatient (CLI) | payer BC ==
[2021-12-04 18:24] LABS: HCT 39.1 % (37.2-46.3); HGB 12.6 g/dL (12.0-15.0); MCH 30.1 pg (27.0-32.0); MCHC 32.2 g/dL (32.0-37.0); MCV 93.3 fL (80.0-97.0); Mean Platelet Volume 10.4 fL (9.5-12.2); NRBC Per 100 WBC 0 /100 WBCS (0.0-0.0); Platelet Count 316 X 10*3/uL (140-440); RBC 4.19 X 10*6/uL (4.10-5.20); RDW 13.7 % (11.5-14.5); WBC 5.09 X 10*3/uL (4.50-10.00)
[2021-12-04 18:33] LABS: African American GFR (CKD) 112.3 (60.0-200.0); Anion Gap 10.2 mmol/L (10.00-18.00); Blood Urea Nitrogen 9.1 mg/dL (9.0-27.0); Carbon Dioxide 28.8 mmol/L (20.0-27.5); Non-African American GFR(CKD) 96.9 (60.0-200.0); Potassium 4.9 mmol/L (3.5-5.5)
== END | disposition home or self-care (01) ==
LOC: LABPAT 09:48
PROVIDERS: ATTEND Internal Medicine Clinical Cardiac Electrophysiology
DX: Z01.812 Encounter for preprocedural laboratory examination (principal); I47.1 Supraventricular tachycardia; E78.2 Mixed hyperlipidemia
CPT/HCPCS: 80051; 82565; 84520; 85027

== ENCOUNTER 2021-12-10 10:38 | Day surgery (SDC) | payer BC ==
[2021-12-09 09:10] VITALS: BMI 33.4
[2021-12-10] MEDS ORDERED: SODIUM CHLORIDE 0.9% 1,000 ML IV ONE (11:03)
[2021-12-10] MEDS ORDERED: MIDAZOLAM 2 MG/2 ML VIAL ONE (13:21)
[2021-12-10] MEDS ORDERED: ISOPROTERENOL 250 MCG/1.25 ML SYR IV ONE (13:21)
[2021-12-10] MEDS ORDERED: fentaNYL (PF) 50 MCG/ML 2 ML AMP ONE (13:21)
[2021-12-10] MEDS ORDERED: ONDANSETRON 4 MG/2 ML VIAL ONE (13:21)
[2021-12-10] MEDS ORDERED: LIDOCAINE 1% INJ 10MG/ML (30 ML VIAL-PF) SQ ONE (14:17)
[2021-12-10] MEDS ORDERED: HEPARIN SODIUM (1,000 UNIT/ML) 1,000 UNIT in SODIUM CHLORIDE 0.9% 1,000 ML IRRIGATION ONE (15:39)
--- NOTE | 2021-12-10 16:54 | P.HPCAR ---
History of Present Illness This is Dr. Moser dictating an H/P on this patient The patient was interviewed and examined IMPRESSION / ASSESSMENT: Recurrent palpitations Adenosine sensitive SVT rates greater than 200 Drug refractory Symptoms of feeling warm and sweaty during these episodes PLAN: EP study, diagnostic for very difficult see ablation of SVT HPI Patient has recurrent episodes of palpitations associated with feeling warm and sweaty She went to the ER once again and was given IV adenosine She has multiple such episodes She has hypertension and dyslipidemia LV function is normal on 2-D echo ROS: No fever chills or rigors, no cough, phlegm or expectoration, no nausea, vomiting or diarrhea, no hematuria, dysuria, no musculoskeletal complaints, no strokes or seizures, no skin lesions. EXAMINATION: On examination she is afebrile 98.6F, pulse rate 89 beats a minute, blood pressure 160/93 mmHg Normal heart sounds normal S1 normal S2 no murmurs developed or rub Breath sounds are clear no rhonchi no crackles No JVD No lower extremity edema Abdomen soft REVIEW OF LABS, ECG & MEDICAL DATA Home medications include valsartan 320 mg daily, simvastatin 40 mg by mouth daily Prilosec Physical Exam Vitals: Vital Signs Temp Pulse Resp BP Pulse Ox 12/10/21 11:17 98.6 F 89 16 160/93 98 Intake and Output 12/10/21 12/10/21 12/10/21 06:59 14:59 22:59 Intake Total 50 Balance 50 Intake: IV 50 Other: Weight 78 kg Past Medical History Past Medical History: Eye Disorder, GERD/Reflux, Hyperlipidemia, Hypertension, Supraventricular Tachycardia (SVT) Additional Past Medical History / Comment(s): See Dr Moser's H&P. Hiatal hernia. Colitis. "Eye drops to help prevent Glaucoma." History of Any Multi-Drug Resistant Organisms: None Reported Past Surgical History: Orthopedic Surgery Additional Past Surgical History / Comment(s): Colonoscopy with benign biopsy, EGD, neck surgery. Past Anesthesia/Blood Transfusion Reactions: Motion Sickness, Postoperative Nausea & Vomiting (PONV) Additional Past Anesthesia/Blood Transfusion Reaction / Comment(s): No hx blood transfusion. Past Psychological History: No Psychological Hx Reported Smoking Status: Former smoker Past Alcohol Use History: Occasional Additional Past Alcohol Use History / Comment(s): QUIT SMOKING MAY 2019-SMOKED OFF AND ON SINCE AGE 16. Past Drug Use History: None Reported - Past Family History Father Family Medical History: Osteoarthritis (OA) Additional Family Medical History / Comment(s): Father is alive and is 88 yrs old. Mother Family Medical History: Liver Disease, Myocardial Infarction (NC) Additional Family Medical History / Comment(s): Mother 05/2014 of cirrhosis of the liver- she was 71 yrs old. She had a couple of MIs. Physical Examination Vital Signs Temp Pulse Resp BP Pulse Ox 12/10/21 11:17 98.6 F 89 16 160/93 98 Intake and Output 12/10/21 12/10/21 12/10/21 06:59 14:59 22:59 Intake Total 50 Balance 50 Intake: IV 50 Other: Weight 78 kg Results Current Medications Generic Name Dose Route Start Last Admin Trade Name Freq PRN Reason Stop Dose Admin Sodium Chloride 1,000 mls @ 20 mls/hr 12/10/21 05:58 Saline 0.9% IV 01/09/22 05:59 .Q24H ORQUIDEA Intake and Output 12/10/21 12/10/21 12/10/21 06:59 14:59 22:59 Intake Total 50 Balance 50 Intake: IV 50 Other: Weight 78 kg Patient Weight 12/11/21 06:59 Weight 78 kg
--- NOTE | 2021-12-10 17:04 | P.EPPROC ---
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 Written informed consent was obtained prior to procedure. Conscious sedation provided by [employer] Venous sheaths placed in the right and left femoral veins and diagnostic catheters placed in the right atrium, His bundle area, RV and coronary sinus Baseline measurements Sinus cycle length 650 ms, TX interval 130 ms, QRS 80 ms and QT interval 381 ms AH 58 and HV 35 ms Sinus node recovery times at 500 400 ms were 684 and 725 ms. Corresponding character sinus recovery times abnormal AV node Wenckebach block 250 ms VA Wenckebach block 240 ms During straight pacing from the high right atrium and from the right ventricle, a long RP tachycardia was induced Broad negative T waves in the inferior leads Earliest activation in the coronary sinus area With ventricular stimulation, the VAV response noted the onset consistent with reentrant tachycardia Tachycardia very easily inducible with a very short cycle length of about 311 ms with a wide The His bundle signals drove the ventricular signals, and ventricular signals did not Drive the tachycardia His refractory PVCs did not advanced tachycardia Entrainment from the right ventricle during tachycardia resulted in termination of the tachycardia repeatedly This is consistent with atypical AV anat reentry Parahisian pacing revealed a anat response Later during placement of the mapping catheter in the high right atrium, believe anat reentry with RVR was also induced Burst stimulation was performed to terminate this tachycardia Tachycardia recurred repeatedly with mechanical stimulation in the high right atrium. Following that 3-D mapping was performed The His bundle was tagged, tricuspid annulus was identified and tagged, coronary sinus was mapped intact Activation mapping was performed and the earliest activation site was noted between the tricuspid annulus and the anterior lip of the coronary sinus Subsequently RF ablation delivered in this region from the tricuspid annulus to the coronary sinus The very first lesion result in termination of the tachycardia within seconds. Following that atrial stimulation and ventricular stimulation did not result in induction of any SVT Isuprel was started wide open and then at 2 mics Atrial and ventricular stimulation was performed coronary sinus pacing was performed no SVT was inducible
--- NOTE | 2021-12-10 17:07 | P.PRLE ---
RE: Krista Hubbard Dear Yuridia Velasco underwent a diagnostic EP study which revealed Atypical AV node reentry with ventricular rates greater than 200 beats a minute Typical AV node reentry with ventricular rates greater than 200 beats a minute Successful mapping and ablation of the slow pathway was performed and the tachycardia was rendered noninducible She will continue to follow with you and Dr. Holloway as before Thank you for entrusting me with the care of the patient Warm regards Sincerely Ashish Moser
[2021-12-10] MEDS ORDERED: ACETAMINOPHEN TAB 325 MG TAB PO PRN (17:14)
[2021-12-10] MEDS: SODIUM CHLORIDE 0.9% 1,000 ML IV SCH (17:23)
[2021-12-10] MEDS ORDERED: ATORVASTATIN 20 MG TAB PO SCH (17:30)
[2021-12-10] MEDS ORDERED: ACETAMINOPHEN IV (For NPO) 1,000 MG in EMPTY BAG 1 BAG IVPB ONE (18:00)
[2021-12-10] MEDS: BALSALAZIDE DISODIUM 750 MG CAPSULE PO SCH (20:59)
[2021-12-10] MEDS: BRIMONIDINE TARTRATE 0.2% DROPS 5 ML BTL LEFT EYE SCH (20:59)
[2021-12-10] MEDS ORDERED: LATANOPROST 0.005% OPHTH DROPS 2.5 ML BTL BOTH EYES SCH (21:00)
[2021-12-11] MEDS ORDERED: PANTOPRAZOLE 40 MG TABLET PO SCH (07:30)
[2021-12-11] MEDS: BALSALAZIDE DISODIUM 750 MG CAPSULE PO SCH (08:21)
[2021-12-11] MEDS: BRIMONIDINE TARTRATE 0.2% DROPS 5 ML BTL LEFT EYE SCH (08:22)
[2021-12-11] MEDS: SODIUM CHLORIDE 0.9% 1,000 ML IV SCH (08:22)
[2021-12-11 08:44] VITALS: BP 143/78; PULSE 75; RESP 16; TEMP 97.7
[2021-12-11] MEDS ORDERED: VALSARTAN 160 MG TAB PO SCH (09:00)
--- NOTE | 2021-12-11 09:58 | P.DS ---
Providers Attending physician: Ashish Moser Primary care physician: [facility] Course: This is a 56-year-old female who underwent SVT ablation with Dr. Moser. Patient is doing well post procedure. Patient denies any chest pain or pressure. Denies any shortness of breath. Vital signs are stable. The patient was deemed stable for discharge home today per Dr. Moser. Please see EMR for further hospital course details. 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 Signing provider agrees with the documented findings, assessment, and plan of care. Plan - Discharge Summary Discharge Rx Participant: No New Discharge Prescriptions: Continue Omeprazole [PriLOSEC] 20 mg PO AC-BRKFST Cholecalciferol [Vitamin D3 (25 Mcg = 1000 Iu)] 1,000 unit PO W/SUPPER Cyanocobalamin (Vitamin B-12) [Vitamin B-12] 500 mcg PO W/SUPPER Loratadine [Alavert] 10 mg PO DAILY Latanoprost Ophth [Xalatan 0.005%] 1 drops BOTH EYES HS Brimonidine Tartrate [Alphagan P 0.2% Ophth Soln] 1 drops LEFT EYE BID Valsartan 320 mg PO DAILY Simvastatin 40 mg PO W/SUPPER Balsalazide Disodium 2,250 mg PO BID Discharge Medication List Omeprazole [PriLOSEC] 20 mg PO AC-BRKFST 10/09/14 [History] Cholecalciferol [Vitamin D3 (25 Mcg = 1000 Iu)] 1,000 unit PO W/SUPPER 12/06/14 [History] Cyanocobalamin (Vitamin B-12) [Vitamin B-12] 500 mcg PO W/SUPPER 05/06/17 [History] Latanoprost Ophth [Xalatan 0.005%] 1 drops BOTH EYES HS 06/02/17 [History] Loratadine [Alavert] 10 mg PO DAILY 06/02/17 [History] Brimonidine Tartrate [Alphagan P 0.2% Ophth Soln] 1 drops LEFT EYE BID 02/13/20 [History] Valsartan 320 mg PO DAILY 02/13/20 [History] Balsalazide Disodium 2,250 mg PO BID 12/09/21 [History] Simvastatin 40 mg PO W/SUPPER 12/09/21 [History] Follow up Appointment(s)/Referral(s): Ashish Moser MD [STAFF PHYSICIAN] - As Needed (Follow Dr. Holloway in 1 week) Jamir Holloway MD [STAFF PHYSICIAN] - 12/18/21 10:00 am Patient Instructions/Handouts: Chest Pain (DC), Cardiac Ablation (DC) Activity/Diet/Wound Care/Special Instructions: Post EP study - Ablation instructions 1. Keep access sites dry for 2 days. 2. No heavy lifting or straining for 2 days. 3. Avoid bending the hips repeatedly for 2 days. 4. You may go up and down stairs slowly Call if the following is noted 1. Bleeding, increasing swelling or pain at the access sites. 2. Increasing chest discomfort, especially upon taking a deep breath. 3. Increasing shortness of breath, at rest or with exertion. 4. Undue cough / phlegm 5. Difficulty or pain while swallowing. 6. Pain or change in color in the extremities. 7. Fever, chills, rigors. 8. Increasing headache or neurologic symptoms. 9. Dizziness, fainting, palpitations Discharge Disposition: HOME SELF-CARE
== END 2021-12-11 10:05 | disposition home or self-care (01) ==
LOC: CATHEP 10:38 → 6NMEDSUR 16:30 → CATHEP 12-11 10:05
PROVIDERS: ATTEND Internal Medicine Clinical Cardiac Electrophysiology
DX: I47.1 Supraventricular tachycardia (principal); I10 Essential (primary) hypertension; E78.5 Hyperlipidemia, unspecified; F17.210 Nicotine dependence, cigarettes, uncomplicated; Z79.890 Hormone replacement therapy; Z79.899 Other long term (current) drug therapy; Z88.6 Allergy status to analgesic agent; Z88.5 Allergy status to narcotic agent; Z88.8 Allergy status to other drugs, medicaments and biological substances; E11.9 Type 2 diabetes mellitus without complications; K21.9 Gastro-esophageal reflux disease without esophagitis; Z20.822 Contact with and (suspected) exposure to COVID-19
CPT/HCPCS: 93623; 93653; 87635; C1894; C1769 ×2; C1760; C1730 ×3; C1893; C1732; J2250; J2405; J2001; J3010; J1644

== ENCOUNTER → 2022-02-22 | Outpatient (CLI) | payer BC ==
[2022-02-22 19:23] LABS: African American GFR (CKD) 59.1 (60.0-200.0); Anion Gap 12.5 mmol/L (10.00-18.00); BUN/Creat Ratio 22.69 Ratio (12.00-20.00); Carbon Dioxide 27.4 mmol/L (20.0-27.5)
== END | disposition home or self-care (01) ==
LOC: LABWHC1 10:32
PROVIDERS: ATTEND Internal Medicine Interventional Cardiology
DX: I10 Essential (primary) hypertension (principal)
CPT/HCPCS: 36415; 80048

== ENCOUNTER → 2022-03-26 | Outpatient (CLI) | payer BC ==
[2022-03-27 02:04] LABS: African American GFR (CKD) 89.8 (60.0-200.0); Anion Gap 11.5 mmol/L (10.00-18.00); BUN/Creat Ratio 16.15 Ratio (12.00-20.00); Blood Urea Nitrogen 13.6 mg/dL (9.0-27.0); Calcium 9.5 mg/dL (8.7-10.3); Carbon Dioxide 28.8 mmol/L (20.0-27.5); Non-African American GFR(CKD) 77.5 (60.0-200.0)
== END | disposition home or self-care (01) ==
LOC: LABWHC1 16:23
PROVIDERS: ATTEND Nurse Practitioner Adult Health
DX: I10 Essential (primary) hypertension (principal)
CPT/HCPCS: 36415; 80048

== ENCOUNTER → 2022-07-12 | Outpatient (CLI) | payer BC ==
--- NOTE | 2022-07-12 14:45 | US ---
EXAMINATION TYPE: US carotid duplex BILAT DATE OF EXAM: 07/12/2022 COMPARISON: CLINICAL INDICATION: Female, 57 years old with history of R09.89 Bruit,; HTN controlled with meds. TECHNIQUE: Carotid duplex ultrasound examination. Indirect Doppler criteria was utilized. FINDINGS: EXAM MEASUREMENTS: RIGHT: Peak Systolic Velocity (PSV) cm/sec ----- Right CCA: 63.3 ----- Right ICA: 103.4 ----- Right ECA: 72.9 ICA/CCA ratio: 1.6 RIGHT: End Diastole cm/sec ----- Right CCA: 19.7 ----- Right ICA: 36.1 ----- Right ECA: 15.4 LEFT: Peak Systolic Velocity (PSV) cm/sec ----- Left CCA: 52.9 ----- Left ICA: 72.4 ----- Left ECA: 80.1 ICA/CCA ratio: 1.4 LEFT: End Diastole cm/sec ----- Left CCA: 18.8 ----- Left ICA: 37.3 ----- Left ECA: 16.4 VERTEBRALS (direction of flow): Right Vertebral: Antegrade Left Vertebral: Antegrade Rhythm: Normal [employer] NOTES: No elevated velocities and significant stenosis. Plaque visualized in bilateral bu lbs. IMPRESSION: No evidence for hemodynamically significant stenosis. Criteria for Assigning % of Stenosis / Diameter reduction (Estimation based on the indirect measurements of the internal carotid artery velocities (ICA PSV). 1. Normal (no stenosis)=ICA PSV < 125 cm/s: ratio < 2.0: ICA EDV<40 cm/s. 2. Less than 50% stenosis=ICA PSV < 125 cm/s: ratio < 2.0: ICA EDV<40 cm/s. 3. 50 to 69% stenosis=ICA PSV of 125 to 230 cm/s: ration 2.0 ? 4.0: ICA EDV 40-100 cm/s. 4. Greater than 70% stenosis to near occlusion= ICA PSV > 230 cm/s: ratio > 4.0: ICA EDV > 100 cm/s. 5. Near occlusion= ICA PSV velocities may be low or undetectable: variable ratio and ICA EDV. 6. Total occlusion=unable to detect flow.
[2022-07-12 16:11] LABS: Basophils # (A) 0.08 X 10*3/uL (0.00-0.10); Basophils % (A) 1.2 %; Eosinophils # (A) 0.22 X 10*3/uL (0.04-0.35); Eosinophils % (A) 3.4 %; HCT 40.2 % (37.2-46.3); HGB 12.9 g/dL (12.0-15.0); Immature Grans, Automated 0.6 %; Lymphocytes % (A) 26.5 %; MCH 29.2 pg (27.0-32.0); MCHC 32.1 g/dL (32.0-37.0); Mean Platelet Volume 10.3 fL (9.5-12.2); Monocytes # (A) 0.53 X 10*3/uL (0.20-1.00); Monocytes % (A) 8.3 %; NRBC Per 100 WBC 0 /100 WBCS (0.0-0.0); Neutrophils # (A) 3.84 X 10*3/uL (1.80-7.70); Platelet Count 350 X 10*3/uL (140-440); RBC 4.42 X 10*6/uL (4.10-5.20); RDW 13.4 % (11.5-14.5); WBC 6.41 X 10*3/uL (4.50-10.00)
[2022-07-12 17:09] LABS: ALT 41 U/L (8-44); AST 32 U/L (13-35); African American GFR (CKD) 114.1 (60.0-200.0); Albumin 4.5 g/dL (3.8-4.9); Albumin/Globulin Ratio 2.01 (1.60-3.17); Alkaline Phosphatase 109 U/L (41-126); Blood Urea Nitrogen 7.4 mg/dL (9.0-27.0); Calcium 9.6 mg/dL (8.7-10.3); Carbon Dioxide 28.4 mmol/L (20.0-27.5); Chloride 104 mmol/L (96-109); Globulin 2.2 g/dL (1.6-3.3); Glucose 103 mg/dL (70-110); LDL Cholesterol,Calculated 70.1 mg/dL (0.0-131.0); Non-African American GFR(CKD) 98.5 (60.0-200.0); Potassium 4.2 mmol/L (3.5-5.5); Sodium 142 mmol/L (135-145); Total Bilirubin <0.15 mg/dL (0.30-1.20); Total Protein 6.7 g/dL (6.2-8.2)
[2022-07-12 18:53] LABS: Microalbumin Creatinine Ratio <30 mg/g Creat (0-30); Urine Creatinine 66.7 mg/dL (28.0-217.0)
== END | disposition home or self-care (01) ==
LOC: RADUSWWP 11:59
PROVIDERS: ATTEND Family Medicine
DX: R09.89 Other specified symptoms and signs involving the circulatory and respiratory systems (principal); Z00.00 Encounter for general adult medical examination without abnormal findings; E78.5 Hyperlipidemia, unspecified; E11.65 Type 2 diabetes mellitus with hyperglycemia; I47.1 Supraventricular tachycardia; E53.8 Deficiency of other specified B group vitamins; E55.9 Vitamin D deficiency, unspecified; I10 Essential (primary) hypertension
CPT/HCPCS: 36415; 80053; 80061; 82043; 82306; 82570; 82607; 83036; 84443; 85025; 93880

== ENCOUNTER → 2022-09-23 | Outpatient (CLI) | payer BC ==
--- NOTE | 2022-09-24 06:33 | MM ---
Reason for Exam: Screening (asymptomatic). Last screening mammogram was performed 12 month(s) ago. Patient History: Menarche at age 14. First Full-Term at age 27. Postmenopausal. Risk Values: Kaylan 5 year model risk: 1.3%. NCI Lifetime model risk: 8.0%. Prior Study Comparison: 08/02/2018 Bilateral Screening Mammogram, [facility]. 03/13/2020 Bilateral Screening Mammogram, [facility]. 09/22/2021 Bilateral MG screening mammo w CAD, [facility]. Tissue Density: The breast tissue is heterogeneously dense. This may lower the sensitivity of mammography. Findings: Analyzed By CAD. Stable oval 3 to 4 mm circumscribed mass in the posterior left breast. There is no suspicious group of microcalcifications or new or enlarging suspicious mass in either breast. Overall Assessment: Negative, BI-RAD 1 Management: Screening Mammogram of both breasts in 1 year. . Patient should continue monthly self-breast exams. A clinical breast exam by your physician is recommended on an annual basis. This exam should not preclude additional follow-up of suspicious palpable abnormalities. Note on Kaylan scores and lifetime risk: 1. A Kaylan score greater than 3% is considered moderate risk. If this is the case, consider specialist referral to assess eligibility for a risk reducing agent. 2. If overall lifetime risk for the development of breast cancer is 20% or higher, the patient may qualify for future screening with alternating mammogram and breast MRI. Electronically signed and approved by: Mp Robbins M.D.
== END | disposition home or self-care (01) ==
LOC: RADMAMWWP 09:10
PROVIDERS: ATTEND Family Medicine
DX: Z12.31 Encounter for screening mammogram for malignant neoplasm of breast (principal); Z78.0 Asymptomatic menopausal state
CPT/HCPCS: 77067

== ENCOUNTER 2023-04-20 20:50 | Observation (INO) | payer BC ==
[2023-04-20 21:41] LABS: Basophils # (A) 0.1 k/uL (0-0.2); Basophils % (A) 1 %; Eosinophils # (A) 0.2 k/uL (0-0.7); Eosinophils % (A) 3 %; HCT 39.4 % (34.0-46.0); HGB 13.2 gm/dL (11.4-16.0); Lymphocytes # (A) 1.7 k/uL (1.0-4.8); Lymphocytes % (A) 26 %; MCH 30.4 pg (25.0-35.0); MCHC 33.4 g/dL (31.0-37.0); MCV 90.8 fL (80.0-100.0); Mean Platelet Volume 7.9; Monocytes # (A) 0.4 k/uL (0-1.0); Monocytes % (A) 6 %; Neutrophils # (A) 3.9 k/uL (1.3-7.7); Neutrophils % (A) 61 %; Platelet Count 346 k/uL (150-450); RBC 4.33 m/uL (3.80-5.40); RDW 13.1 % (11.5-15.5); WBC 6.4 k/uL (3.8-10.6)
--- NOTE | 2023-04-20 21:49 | XR ---
EXAMINATION TYPE: XR chest 2V DATE OF EXAM: 04/20/2023 9:35 PM CLINICAL INDICATION:Female, 57 years old with history of Chest Pain; [facility] COMPARISON: Chest radiographs from 219 TECHNIQUE: XR chest 2V Frontal and lateral views of the chest. FINDINGS: Lungs/Pleura: There is no evidence of pleural effusion, focal consolidation, or pneumothorax. Pulmonary vascularity: Unremarkable. Heart/mediastinum: Cardiomediastinal silhouette is unremarkable. Musculoskeletal: No acute osseous pathology. There is fixation hardware in the lower cervical spine. IMPRESSION: No acute cardiopulmonary disease/process.
[2023-04-20 21:54] LABS: INR 0.9 (<1.2); Partial Thromboplastin Time 24.8 sec (22.0-30.0); Prothrombin Time 10.4 sec (10.0-12.5)
[2023-04-20 22:37] LABS: ALT 33 U/L (4-34); AST 32 U/L (14-36); African American GFR (CKD) >90 (>60 ml/min/1.73 sqM); Albumin 4.1 g/dL (3.5-5.0); Alkaline Phosphatase 110 U/L (38-126); Anion Gap 7 mmol/L; Blood Urea Nitrogen 14 mg/dL (7-17); Calcium 9.5 mg/dL (8.4-10.2); Carbon Dioxide 26 mmol/L (22-30); Chloride 107 mmol/L (98-107); Glucose 118 mg/dL (74-99); Magnesium 1.9 mg/dL (1.6-2.3); Non-African American GFR(CKD) >90 (>60 ml/min/1.73 sqM); Potassium 3.9 mmol/L (3.5-5.1); Sodium 140 mmol/L (137-145); Total Bilirubin 0.4 mg/dL (0.2-1.3); Total Protein 6.7 g/dL (6.3-8.2)
--- NOTE | 2023-04-20 23:07 | ED ---
Chest Pain HPI - General Chief Complaint: Chest Pain Stated Complaint: Chest pain high BP Time Seen by Provider: 04/20/23 23:06 Source: patient Mode of arrival: ambulatory Limitations: no limitations - History of Present Illness Initial Comments: 57-year-old female presenting with chief complaint of elevated blood pressure and chest pain. Patient was seen at her PCPs office for her regular checkup today and noted that her blood pressure was elevated. The instructed her to start a new medication tomorrow. She noticed this today with a burn that her blood pressure remained elevated. She admits to left-sided chest tightness. No alleviating or aggravating factors. No shortness of breath. No palpitations, numbness, tingling, weakness, cough, congestion, sore throat, fever, chills, nausea, vomiting, abdominal pain. - Related Data Home Medications Medication Instructions Recorded Confirmed Omeprazole [PriLOSEC] 20 mg PO AC-BRKFST 10/09/14 12/10/21 Cholecalciferol [Vitamin D3 (25 1,000 unit PO W/SUPPER 12/06/14 12/10/21 Mcg = 1000 Iu)] Cyanocobalamin (Vitamin B-12) 500 mcg PO W/SUPPER 05/06/17 12/10/21 [Vitamin B-12] Latanoprost Ophth [Xalatan 0.005%] 1 drops BOTH EYES HS 06/02/17 12/10/21 Loratadine [Alavert] 10 mg PO DAILY 06/02/17 12/10/21 Brimonidine Tartrate [Alphagan P 1 drops LEFT EYE BID 02/13/20 12/10/21 0.2% Ophth Soln] Valsartan 320 mg PO DAILY 02/13/20 12/10/21 Balsalazide Disodium 2,250 mg PO BID 12/09/21 12/10/21 Simvastatin 40 mg PO W/SUPPER 12/09/21 12/10/21 Previous Rx's Medication Instructions Recorded Cyclobenzaprine HCl 10 mg PO TID PRN 7 Days #21 tab 05/17/22 Ibuprofen [Motrin] 800 mg PO Q8H PRN 7 Days #21 tab 05/17/22 Allergies Allergy/AdvReac Type Severity Reaction Status Date / Time hydrocodone bitartrate AdvReac Nausea Verified 04/20/23 20:58 [From Vicodin] propoxyphene napsylate AdvReac Nausea Verified 04/20/23 20:58 [From Darvocet-N] Review of Systems ROS Statement: Those systems with pertinent positive or pertinent negative responses have been documented in the HPI. ROS Other: All systems not noted in ROS Statement are negative. Past Medical History Past Medical History: Eye Disorder, GERD/Reflux, Hyperlipidemia, Hypertension Additional Past Medical History / Comment(s): states "feels like a rock in my stomach", hx cervical herniated discs C4-5 and C 6-7. hiatal hernia, eye drops to help prevent glaucoma . cardiac ablation History of Any Multi-Drug Resistant Organisms: None Reported Past Surgical History: Orthopedic Surgery Additional Past Surgical History / Comment(s): 2009 colonoscopy with benign bx, EGD, neck surgery. cardiac ablation Past Anesthesia/Blood Transfusion Reactions: Motion Sickness, Postoperative Nausea & Vomiting (PONV) Additional Past Anesthesia/Blood Transfusion Reaction / Comment(s): no hx blood transfusion. Past Psychological History: No Psychological Hx Reported Smoking Status: Former smoker - Past Family History Father Family Medical History: Osteoarthritis (OA) Additional Family Medical History / Comment(s): Father is alive and is 88 yrs old. Mother Family Medical History: Liver Disease, Myocardial Infarction (NV) Additional Family Medical History / Comment(s): Mother 05/2014 of cirrhosis of the liver- she was 71 yrs old. She had a couple of MIs. General Exam - General Exam Comments Initial Comments: Visual Physical Exam Vital signs reviewed General: Well-appearing, nontoxic, no acute distress. Head: Normocephalic, atraumatic Eyes: PERRLA, EOMI ENT: Airway patent Chest: Nonlabored breathing Skin: No visual rash, normal skin tone Neuro: Alert and oriented 3 Musculoskeletal: No gross abnormalities Limitations: no limitations General appearance: alert, in no apparent distress Head exam: Present: atraumatic, normocephalic Eye exam: Present: normal appearance, EOMI Neck exam: Present: normal inspection Respiratory exam: Present: normal lung sounds bilaterally. Absent: respiratory distress, wheezes, rales, rhonchi, stridor Cardiovascular Exam: Present: regular rate, normal rhythm, normal heart sounds. Absent: systolic murmur, diastolic murmur, rubs, gallop, clicks Neurological exam: Present: alert, oriented X3 Psychiatric exam: Present: normal affect, normal mood Skin exam: Present: warm, dry Course Vital Signs 04/20/23 04/21/23 20:51 00:00 Temperature 98.0 F Pulse Rate 109 H 89 Respiratory 18 18 Rate Blood Pressure 178/81 158/80 O2 Sat by Pulse [address] [facility] EKG shows sinus rhythm with ventricular rate 90. IA interval 124. QRS 88. QT 348. QTC 396. Was pt. sent in by a medical professional or institution ([facility], ASSOCIATE CHIEF NURSE, urgent care, hospital, or half-way...) When possible be specific @ -No Did you speak to anyone other than the patient for history (EMS, parent, family, police, friend...)? What history was obtained from this source @ -No Did you review nursing and triage notes (agree or disagree)? Why? @ -I reviewed and agree with nursing and triage notes Were old charts reviewed (outside hosp., previous admission, EMS record, old EKG, old radiological studies, urgent care reports/EKG's, half-way records)? Report findings @ -No old charts were reviewed Differential Diagnosis (chest pain, altered mental status, abdominal pain women, abdominal pain men, vaginal bleeding, weakness, fever, dyspnea, syncope, headache, dizziness, GI bleed, back pain, seizure, CVA, palpatations, mental health, musculoskeletal)? @ -[facility] Differential Chest Pain: Stable Angina, Unstable Angina, STEMI, NSTEMI Aortic Dissection, Pneumothorax, Musculoskeletal, Esophageal Spasm GERD, Cholecystitis, Pancreatitis, Zoster This is not meant to be an all-inclusive list. EKG interpreted by me (3pts min.). @ -As above X-rays interpreted by me (1pt min.). @ -X-ray shows no acute cardiopulmonary process CT interpreted by me (1pt min.). @ -None done U/S interpreted by me (1pt. min.). @ -None done What testing was considered but not performed or refused? (CT, X-rays, U/S, labs)? Why? @ -None What meds were considered but not given or refused? Why? @ -None Did you discuss the management of the patient with other professionals (professionals i.e. [facility] [facility], ASSOCIATE CHIEF NURSE, lab, RT, psych nurse, social services analyst, patient scheduler, teacher, engineering officer, binder caser)? Give summary @ -My attending spoke with the [facility] hospitalist group provider on-call who accepted admission Was smoking cessation discussed for >3mins.? @ -No Was critical care preformed (if so, how long)? @ -No Were there social determinants of health that impacted care today? How? (Homelessness, low income, unemployed, alcoholism, drug addiction, transportation, low edu. Level, literacy, decrease access to med. care, [facility], rehab)? @ -No Was there de-escalation of care discussed even if they declined (Discuss DNR or withdrawal of care, Hospice)? DNR status @ -No What co-morbidities impacted this encounter? (DM, HTN, Smoking, COPD, CAD, Cancer, CVA, ARF, Chemo, Hep., AIDS, mental health diagnosis, sleep apnea, morbid obesity)? @ -Hypertension, hyperlipidemia Was patient admitted / discharged? Hospital course, mention meds given and route, prescriptions, significant lab abnormalities, going to OR and other pertinent info. @ -57-year-old female presenting with chief complaint of chest pain and elevated blood pressure. History and physical examination are conducted. Lab work is grossly unremarkable. Chest x-ray shows no acute process. EKG shows sinus rhythm. Heart score is 4. She will be admitted for observation. She is agreeable with this plan. I discussed this case with my attending Dr. Moyer Undiagnosed new problem with uncertain prognosis? @ -No Drug Therapy requiring intensive monitoring for toxicity (Heparin, Nitro, Insulin, Cardizem)? @ -No Were any procedures done? @ -No Diagnosis/symptom? @ -Chest pain Acute, or Chronic, or Acute on Chronic? @ -Acute Uncomplicated (without systemic symptoms) or Complicated (systemic symptoms)? @ -Complicated Side effects of treatment? @ -No Exacerbation, Progression, or Severe Exacerbation? @ -No Poses a threat to life or bodily function? How? (Chest pain, USA, NV, pneumonia, PE, COPD, DKA, ARF, appy, cholecystitis, CVA, Diverticulitis, Homicidal, Suicidal, threat to staff... and all critical care pts) @ -yes Disposition Clinical Impression: Chest pain Disposition: ADMITTED IP TO THIS HOSP Condition: Fair Time of Disposition: 00:06
[2023-04-21] MEDS ORDERED: NALOXONE 0.4 MG/ML 1 ML VIAL IV PRN (00:03)
[2023-04-21] MEDS ORDERED: ASPIRIN 81 MG PO STA (00:06)
[2023-04-21] MEDS: amLODIPine 5 MG TAB PO SCH (09:07)
[2023-04-21] MEDS: VALSARTAN 160 MG TAB PO SCH (09:08)
--- NOTE | 2023-04-21 10:28 | P.HPIM ---
History of Present Illness H&P Date: 04/21/23 History of present illness; patient is a 57-year-old lady with past medical hist ory significant for hypertension who presented to the ER for elevated blood pressure and chest pain. Patient stated that she was seen outpatient at her PCP office and was found to have elevated blood pressure. Patient was started on new blood pressure medications. Patient stated that since yesterday she has been noticing left-sided chest pressure. Chest pressure is intermittent, nonradiating, no aggravating or relieving factors associated with chest pressure. Denies any shortness of breath associated with chest pain. Denies any palpitations. Because of this chest pain, patient became concerned and came to the ER Initial lab work done in the ER showed WBC 6.4, hemoglobin 13.2, platelet count 346, sodium 140, potassium 3.9, BUN 14, creatinine 0.71 Troponin 0.012 EKG done in the ER showed heart rate of 90, no ST segment elevation or depression seen, no T-wave inversions seen. Chest x-ray done in the ER showed no acute cardiac process Patient admitted to internal medicine service REVIEW OF SYSTEMS: CONSTITUTIONAL: No fever, no malaise, no fatigue. HEENT: No recent visual problems or hearing problems. Denied any sore throat. CARDIOVASCULAR: As mentioned in HPI PULMONARY: No shortness of breath, no cough, no hemoptysis. GASTROINTESTINAL: No diarrhea, no nausea, no vomiting, no abdominal pain. NEUROLOGICAL: No headaches, no weakness, no numbness. HEMATOLOGICAL: Denies any bleeding or petechiae. GENITOURINARY: Denies any burning micturition, frequency, or urgency. MUSCULOSKELETAL/RHEUMATOLOGICAL: Denies any joint pain, swelling, or any muscle pain. ENDOCRINE: Denies any polyuria or polydipsia. The rest of the 14-point review of systems is negative. PHYSICAL EXAMINATION: GENERAL: The patient is alert and oriented x3, not in any acute distress. Well developed, well nourished. HEENT: Pupils are round and equally reacting to light. EOMI. No scleral icterus. No conjunctival pallor. Normocephalic, atraumatic. No pharyngeal erythema. No thyromegaly. CARDIOVASCULAR: S1 and S2 present. No murmurs, rubs, or gallops. PULMONARY: Chest is clear to auscultation, no wheezing or crackles. ABDOMEN: Soft, nontender, nondistended, normoactive bowel sounds. No palpable organomegaly. MUSCULOSKELETAL: No joint swelling or deformity. EXTREMITIES: No cyanosis, clubbing, or pedal edema. NEUROLOGICAL: Gross neurological examination did not reveal any focal deficits. SKIN: No rashes. Assessment and plan Chest pain, rule out acute coronary syndrome Hypertension Hyperlipidemia Monitor vital signs Monitor CBC Monitor CMP Continue telemetry monitoring Trend troponin. Ordered d-dimer Resume Norvasc and Diovan Ordered 2-D echo Consult cardiology Labs and medication were reviewed.. Continue same treatment. Continue with symptomatic treatment. Resume home medication. Monitor labs and vitals. DVT and GI prophylaxis. Further recommendations as per clinical course of the patient Dictation was produced using [employer] dictation software. please excuse any grammatical, word or spelling errors. Past Medical History Past Medical History: Eye Disorder, GERD/Reflux, Hyperlipidemia, Hypertension, Supraventricular Tachycardia (SVT) Additional Past Medical History / Comment(s): states "feels like a rock in my stomach", hx cervical herniated discs C4-5 and C 6-7. hiatal hernia, eye drops to help prevent glaucoma . cardiac ablation History of Any Multi-Drug Resistant Organisms: None Reported Past Surgical History: Orthopedic Surgery Additional Past Surgical History / Comment(s): 2009 colonoscopy with benign bx, EGD, neck surgery. cardiac ablation. Past Anesthesia/Blood Transfusion Reactions: Motion Sickness, Postoperative Nausea & Vomiting (PONV) Additional Past Anesthesia/Blood Transfusion Reaction / Comment(s): no hx blood transfusion. Past Psychological History: No Psychological Hx Reported Additional Psychological History / Comment(s): Pt resides with her fiancee and children. She is independent. No assistive device or home care. She drives. Smoking Status: Former smoker Past Alcohol Use History: Occasional Additional Past Alcohol Use History / Comment(s): QUIT SMOKING MAY 2019-SMOKED OFF AND ON SINCE AGE 16. She states she drinks occasionally and less than 7 drinks a week. Past Drug Use History: None Reported - Past Family History Father Family Medical History: Osteoarthritis (OA) Additional Family Medical History / Comment(s): Father is alive and is 88 yrs old. Mother Family Medical History: Liver Disease, Myocardial Infarction ([place]) Additional Family Medical History / Comment(s): Mother 05/2014 of cirrhosis of the liver- she was 71 yrs old. She had a couple of MIs. Medications and Allergies Home Medications Medication Instructions Recorded Confirmed Type Omeprazole [PriLOSEC] 20 mg PO AC-BRKFST 10/09/14 04/21/23 History Latanoprost Ophth [Xalatan 0.005%] 1 drops BOTH EYES HS 06/02/17 04/21/23 History Loratadine [Alavert] 10 mg PO DAILY 06/02/17 04/21/23 History Brimonidine Tartrate [Alphagan P 1 drops LEFT EYE BID 02/13/20 04/21/23 History 0.2% Ophth Soln] Valsartan 320 mg PO DAILY 02/13/20 04/21/23 History Simvastatin 40 mg PO W/SUPPER 12/09/21 04/21/23 History Cholecalciferol [Vitamin D3 (25 25 mcg PO DAILY 04/21/23 04/21/23 History Mcg = 1000 Iu)] amLODIPine [Norvasc] 5 mg PO DAILY 04/21/23 04/21/23 History Allergies Allergy/AdvReac Type Severity Reaction Status Date / Time hydrocodone bitartrate AdvReac Nausea Verified 04/21/23 08:50 [From Vicodin] propoxyphene napsylate AdvReac Nausea Verified 04/21/23 08:50 [From Darvocet-N] Physical Exam Vitals: Vital Signs Temp Pulse Pulse Resp BP BP Pulse Ox 04/21/23 09:10 98.2 F 94 17 154/91 96 04/21/23 09:02 98.2 F 94 17 154/91 96 04/21/23 04:32 97.9 F 80 18 158/87 97 04/21/23 00:00 89 18 158/80 99 04/20/23 20:51 98.0 F 109 H 18 178/81 96 Intake and Output 04/20/23 04/21/23 04/21/23 22:59 06:59 14:59 Other: # Voids 1 Weight 77.111 kg 77.111 kg Results CBC & Chem 7: 04/20/23 21:10 04/20/23 21:10 Labs: Abnormal Lab Results - Last 24 Hours (Table) 04/20/23 Range/Units 21:10 Glucose 118 H (74-99) mg/dL Thrombosis Risk Factor Assmnt - Choose All That Apply Each Factor Represents 1 point: Age 41-60 years Other congenital or acquired thrombophilia - If yes, enter type in comment: No Thrombosis Risk Factor Assessment Total Risk Factor Score: 1 Thrombosis Risk Factor Assessment Level: Low Risk
[2023-04-21] MEDS: ACETAMINOPHEN TAB 325 MG TAB PO PRN ×2 (10:46→18:48)
[2023-04-21] MEDS: PANTOPRAZOLE 40 MG TABLET PO SCH (10:46)
--- NOTE | 2023-04-21 11:15 | P.CRDCN ---
History of Present Illness Consult date: 04/21/23 Consult reason: chest pain History of present illness: History of present illness: This is a 57-year-old female patient of Dr. Holloway with past medical history of hypertension, dyslipidemia, history of tobacco use, SVT status post ablation maintaining sinus rhythm, diabetes mellitus type 2. We have been asked to evaluate the patient for chest pain. Patient is seen today in the emergency center waiting for a bed on the observation unit. Patient states that she was at her PCP office yesterday and her blood pressure was high running about 169/108 and she was currently on valsartan 320 and amlodipine 5 mg. Her PCP was going to make blood pressure medication changes but after leaving the office. Patient and discussed the diuretic that was going to be started had dropped her blood pressure in the past and also blood pressure was quite high and then she developed lightheadedness dizziness, chest pressure. Chest pain was in the middle of the chest with no radiation. Patient then decided to come into the hospital for further evaluation. She has no previous stenting done. EKG sinus rhythm low voltage Chest x-ray: No acute process CBC, INR, electrolytes and renal function, liver function test all within normal limits. Glucose 118. Troponin negative x 3. Home cardiac medications: Amlodipine 5 mg daily, simvastatin 40 mg with supper, valsartan 320 mg daily 12/10/2021 patient underwent slow pathway ablation for recurrent SVT. Echocardiogram performed 01/30/2021 revealed normal EF, mild TR, mild MR. Stress echocardiogram performed 10/05/2019 was normal EF and normal function. Review Of Systems: At the time of my evaluation: Constitutional: No fever, no chills. No weakness, fatigue or lethargy. EENT: No headache. No dizziness. Lungs: No shortness of breath, cough, no sputum production. No wheezing. Cardiovascular: No chest pain, no lower extremity edema. No palpitations. No paroxysmal nocturnal dyspnea. No orthopnea. No lightheadedness or dizziness. No syncopal episodes. Abdominal: No abdominal pain. No nausea, vomiting. No diarrhea. No constipation. No bloody or tarry stools. Genitourinary: No dysuria.. No urinary retention. Musculoskeletal: No myalgias. No muscle weakness, no frequent falls. No back pain. No neck pain. Integumentary: No wounds. No rash. No unusual bruising. Neurologic: No aphasia. No facial droop. No change in mentation. No head injury. No headache. Physical examination: Gen: This is a 57-year-old female in no acute distress VS: reviewed HEENT: Head is atraumatic, normocephalic. Pupils equal, round. Sclerae is anicteric. NECK: Supple. No JVD. LUNGS: Clear to auscultation. No wheezes or rhonchi. No intercostal retractions. HEART: Regular rate and rhythm. 2/6 systolic murmur. ABDOMEN: Soft No tenderness. EXTREMITIES: No pedal edema. No calf tenderness. NEUROLOGICAL: Patient is awake, alert and oriented x3. Assessment: Uncontrolled hypertension Atypical chest pain, acute coronary syndrome ruled out by normal troponins Dyslipidemia Remote history of tobacco use and dependence History of SVT status post ablation Diabetes mellitus type 2 Plan: Resume patient's current home medications without changes made yesterday by PCP Monitor blood pressure closely Obtain 2-D echocardiogram and Doppler study to assess cardiac structure and function Further recommendations to follow based upon clinical course Thank you kindly for this consultation. Nurse practitioner note has been reviewed, I agree with documented findings and plan of care. Patient was seen and examined. Past Medical History Past Medical History: Eye Disorder, GERD/Reflux, Hyperlipidemia, Hypertension Additional Past Medical History / Comment(s): states "feels like a rock in my stomach", hx cervical herniated discs C4-5 and C 6-7. hiatal hernia, eye drops to help prevent glaucoma . cardiac ablation History of Any Multi-Drug Resistant Organisms: None Reported Past Surgical History: Orthopedic Surgery Additional Past Surgical History / Comment(s): 2009 colonoscopy with benign bx, EGD, neck surgery. cardiac ablation Past Anesthesia/Blood Transfusion Reactions: Motion Sickness, Postoperative Nausea & Vomiting (PONV) Additional Past Anesthesia/Blood Transfusion Reaction / Comment(s): no hx blood transfusion. Past Psychological History: No Psychological Hx Reported Smoking Status: Former smoker - Past Family History Father Family Medical History: Osteoarthritis (OA) Additional Family Medical History / Comment(s): Father is alive and is 88 yrs o ld. Mother Family Medical History: Liver Disease, Myocardial Infarction ([place]) Additional Family Medical History / Comment(s): Mother 05/2014 of cirrhosis of the liver- she was 71 yrs old. She had a couple of MIs. Medications and Allergies Home Medications Medication Instructions Recorded Confirmed Type Omeprazole [PriLOSEC] 20 mg PO AC-BRKFST 10/09/14 04/21/23 History Latanoprost Ophth [Xalatan 0.005%] 1 drops BOTH EYES HS 06/02/17 04/21/23 History Loratadine [Alavert] 10 mg PO DAILY 06/02/17 04/21/23 History Brimonidine Tartrate [Alphagan P 1 drops LEFT EYE BID 02/13/20 04/21/23 History 0.2% Ophth Soln] Valsartan 320 mg PO DAILY 02/13/20 04/21/23 History Simvastatin 40 mg PO W/SUPPER 12/09/21 04/21/23 History Cholecalciferol [Vitamin D3 (25 25 mcg PO DAILY 04/21/23 04/21/23 History Mcg = 1000 Iu)] amLODIPine [Norvasc] 5 mg PO DAILY 04/21/23 04/21/23 History Allergies Allergy/AdvReac Type Severity Reaction Status Date / Time hydrocodone bitartrate AdvReac Nausea Verified 04/21/23 08:50 [From Vicodin] propoxyphene napsylate AdvReac Nausea Verified 04/21/23 08:50 [From Darvocet-N] Physical Exam Vitals: Vital Signs Temp Pulse Pulse Resp BP BP Pulse Ox 04/21/23 04:32 97.9 F 80 18 158/87 97 04/21/23 00:00 89 18 158/80 99 04/20/23 20:51 98.0 F 109 H 18 178/81 96 Intake and Output 04/20/23 04/21/23 04/21/23 22:59 06:59 14:59 Other: # Voids 1 Weight 77.111 kg Results 04/20/23 21:10 04/20/23 21:10 Cardiac Enzymes 04/20/23 04/20/23 04/21/23 Range/Units 21:10 21:10 03:27 AST 32 (14-36) U/L Troponin I <0.012 <0.012 (0.000-0.034) ng/mL 04/21/23 Range/Units 05:40 AST (14-36) U/L Troponin I <0.012 (0.000-0.034) ng/mL Coagulation 04/20/23 Range/Units 21:10 PT 10.4 (10.0-12.5) sec APTT 24.8 (22.0-30.0) sec CBC 04/20/23 Range/Units 21:10 WBC 6.4 (3.8-10.6) k/uL RBC 4.33 (3.80-5.40) m/uL Hgb 13.2 (11.4-16.0) gm/dL Hct 39.4 (34.0-46.0) % Plt Count 346 (150-450) k/uL Comprehensive Metabolic Panel 04/20/23 Range/Units 21:10 Sodium 140 (137-145) mmol/L Potassium 3.9 (3.5-5.1) mmol/L Chloride 107 (98-107) mmol/L Carbon Dioxide 26 (22-30) mmol/L BUN 14 (7-17) mg/dL Creatinine 0.71 (0.52-1.04) mg/dL Glucose 118 H (74-99) mg/dL Calcium 9.5 (8.4-10.2) mg/dL AST 32 (14-36) U/L ALT 33 (4-34) U/L Alkaline Phosphatase 110 (38-126) U/L Total Protein 6.7 (6.3-8.2) g/dL Albumin 4.1 (3.5-5.0) g/dL Current Medications Generic Name Dose Route Start Last Admin Trade Name Freq PRN Reason Stop Dose Admin Naloxone HCl 0.2 mg 04/21/23 00:03 Naloxone 0.4 Mg/Ml 1 Ml Vial IV Q2M PRN Opioid Reversal Intake and Output 04/20/23 04/21/23 04/21/23 22:59 06:59 14:59 Other: # Voids 1 Weight 77.111 kg 04/20/23 21:10 04/20/23 21:10
[2023-04-21] MEDS ORDERED: ATORVASTATIN 40 MG TAB PO SCH (21:00)
[2023-04-21] MEDS ORDERED: LATANOPROST 0.005% OPHTH DROPS 2.5 ML BTL BOTH EYES SCH (21:00)
[2023-04-21] MEDS: BRIMONIDINE TARTRATE 0.2% DROPS 5 ML BTL LEFT EYE SCH (21:42)
[2023-04-22] MEDS: PANTOPRAZOLE 40 MG TABLET PO SCH (05:48)
[2023-04-22] MEDS ORDERED: PANTOPRAZOLE 40 MG TABLET PO SCH (07:30)
[2023-04-22 08:40] VITALS: BP 142/82; PULSE 85; RESP 16; TEMP 97.2
[2023-04-22] MEDS ORDERED: LORATADINE 10 MG TAB PO SCH (09:00)
[2023-04-22] MEDS ORDERED: CHOLECALCIFEROL 25 MCG (1000 IU) TABLET PO SCH (09:00)
--- NOTE | 2023-04-22 09:47 | CA ---
Transthoracic Echo Report Name: Krista Hubbard Age: 57 Gender: F : 1965 Exam Date: 04/21/2023 11:20 Exam Location: [facility] Ht (in): 60 Wt (lb): 170 Ordering Physician: Hyacinth Borrero Attending/Referring Phys: [id number], Adair Kaiawhina Kohanga Reo Jessica Banks RDCS Procedure CPT: Indications: LVF Cardiac Hx: Technical Quality: Poor Contrast 1: Definity Total Dose (mL): 2 Contrast 2: Total Dose (mL): MEASUREMENTS (Male / Female) Normal Values 2D ECHO LV Diastolic Diameter PLAX 3.8 cm 4.2 - 5.9 / 3.9 - 5.3 cm LV Systolic Diameter PLAX 2.7 cm IVS Diastolic Thickness 1.3 cm 0.6 - 1.0 / 0.6 - 0.9 cm LVPW Diastolic Thickness 1.0 cm 0.6 - 1.0 / 0.6 - 0.9 cm LV Relative Wall Thickness 0.6 RV Internal Dim ED PLAX 2.9 cm LA Volume 22.5 cm??? 18 - 58 / 22 - 52 cm??? LA Volume Index 12.2 cm???/m??? 16 - 28 cm???/m??? M-MODE Aortic Root Diameter MM 2.9 cm LA Systolic Diameter MM 3.8 cm LA Ao Ratio MM 1.3 AV Cusp Separation MM 1.6 cm DOPPLER AV Peak Velocity 162.4 cm/s AV Peak Gradient 10.6 mmHg AV Mean Velocity 113.1 cm/s AV Mean Gradient 5.7 mmHg AV Velocity Time Integral 32.7 cm LVOT Peak Velocity 116.4 cm/s LVOT Peak Gradient 5.4 mmHg LVOT Velocity Time Integral 27.5 cm MV Area PHT 4.0 cm??? Mitral E Point Velocity 86.0 cm/s Mitral A Point Velocity 94.7 cm/s Mitral E to A Ratio 0.9 MV Deceleration Time 191.8 ms FINDINGS Left Ventricle Mildly increased left ventricular wall thickness. Left ventricular cavity size normal. Normal left ventricular systolic function with no obvious regional wall motion abnormalities. Left ventricular ejection fraction is estimated at 55-60 %. Right Ventricle Normal right ventricular size and function. Right ventricular systolic pressure within normal limits. Right Atrium Normal right atrial size. Left Atrium Normal left atrial size. Mitral Valve Structurally normal mitral valve. No mitral stenosis, regurgitation or prolapse. Aortic Valve Trileaflet aortic valve. No aortic valve stenosis or regurgitation. Tricuspid Valve Structurally normal tricuspid valve. Mild tricuspid regurgitation. Pulmonic Valve Structurally normal pulmonic valve. Pericardium No pericardial effusion. Aorta Normal size aortic root and proximal ascending aorta. CONCLUSIONS Technically difficult study for interpretation Normal LV systolic function Poorly visualized intracardiac valves Previewed by: Dr. Marc Kapoor MD (Electronically Signed) Final Date: 22 April 2023 09:46
--- NOTE | 2023-04-22 10:09 | P.PN ---
Subjective Progress Note Date: 04/22/23 Consult reason: chest pain History of present illness: History of present illness: This is a 57-year-old female patient of Dr. Holloway with past medical history of hypertension, dyslipidemia, history of tobacco use, SVT status post ablation maintaining sinus rhythm, diabetes mellitus type 2. We have been asked to evaluate the patient for chest pain. Patient is seen today in the emergency center waiting for a bed on the observation unit. Patient states that she was at her PCP office yesterday and her blood pressure was high running about 169/108 and she was currently on valsartan 320 and amlodipine 5 mg. Her PCP was going to make blood pressure medication changes but after leaving the office. Patient and discussed the diuretic that was going to be started had dropped her blood pressure in the past and also blood pressure was quite high and then she developed lightheadedness dizziness, chest pressure. Chest pain was in the middle of the chest with no radiation. Patient then decided to come into the hospital for further evaluation. She has no previous stenting done. EKG sinus rhythm low voltage Chest x-ray: No acute process CBC, INR, electrolytes and renal function, liver function test all within normal limits. Glucose 118. Troponin negative x 3. Home cardiac medications: Amlodipine 5 mg daily, simvastatin 40 mg with supper, valsartan 320 mg daily 12/10/2021 patient underwent slow pathway ablation for recurrent SVT. Echocardiogram performed 01/30/2021 revealed normal EF, mild TR, mild MR. Stress echocardiogram performed 10/05/2019 was normal EF and normal function. 04/22 Patient is seen in follow-up today on the observation unit. She denies having any chest pain, no lightheadedness or dizziness. No shortness of breath. Blood pressure readings are improved today and patient has been maintained on her previous blood pressure medications. No changes were made. Echocardiogram reveals a technically difficult study. Normal LV systolic function. Poorly visualized intracardiac valves. Patient is cleared from cardiology for discharge Physical examination: Gen: This is a 57-year-old female in no acute distress VS: reviewed HEENT: Head is atraumatic, normocephalic. Pupils equal, round. Sclerae is anicteric. NECK: Supple. No JVD. LUNGS: Clear to auscultation. No wheezes or rhonchi. No intercostal retr actions. HEART: Regular rate and rhythm. /6 systolic murmur. ABDOMEN: Soft No tenderness. EXTREMITIES: No pedal edema. No calf tenderness. NEUROLOGICAL: Patient is awake, alert and oriented x3. Assessment: Uncontrolled hypertension Atypical chest pain, acute coronary syndrome ruled out by normal troponins Dyslipidemia Remote history of tobacco use and dependence History of SVT status post ablation Diabetes mellitus type 2 Plan: Continue patient's current cardiac medications. Patient is cleared for discharge from cardiology and may follow-up with Dr. Holloway in 1 to 2 weeks. Nurse practitioner note has been reviewed, I agree with documented findings and plan of care. Patient was seen and examined. Objective - Vital Signs Vital signs: Vital Signs Temp 97.2 F L 04/22/23 07:40 Pulse 85 04/22/23 07:40 Resp 16 04/22/23 08:40 BP 142/82 04/22/23 07:40 Pulse Ox 95 04/22/23 07:40 FiO2 Intake & Output 04/21/23 04/22/23 04/22/23 18:59 06:59 18:59 Weight 77.111 kg Other: Voiding Method Toilet Toilet # Voids 2 3 - Labs CBC & Chem 7: 04/20/23 21:10 04/20/23 21:10
[2023-04-22] MEDS: VALSARTAN 160 MG TAB PO SCH (10:39)
[2023-04-22] MEDS: amLODIPine 5 MG TAB PO SCH (10:40)
[2023-04-22] MEDS: BRIMONIDINE TARTRATE 0.2% DROPS 5 ML BTL LEFT EYE SCH (10:40)
--- NOTE | 2023-04-22 10:55 | P.DS ---
Providers Date of admission: 04/21/23 00:06 Expected date of discharge: 04/22/23 Attending physician: Karen Rosas Consults: 04/21/23 00:03 Consult Physician Urgent Consulting Provider: [facility] Consult Reason/Comments: chest pain Do you want consulting provider notified?: Yes, Notify in am Primary care physician: [facility] Course: Discharge diagnoses; Chest pain, ruled out acute coronary syndrome Hypertension Hyperlipidemia Hospital course; patient is a 57-year-old lady with past medical history significant for hypertension who presented to the ER for elevated blood pressure and chest pain. Patient stated that she was seen outpatient at her PCP office and was found to have elevated blood pressure. Patient was started on new blood pressure medications. Patient stated that since yesterday she has been noticing left- sided chest pressure. Chest pressure is intermittent, nonradiating, no aggravating or relieving factors associated with chest pressure. Denies any shortness of breath associated with chest pain. Denies any palpitations. Because of this chest pain, patient became concerned and came to the ER Initial lab work done in the ER showed WBC 6.4, hemoglobin 13.2, platelet count 346, sodium 140, potassium 3.9, BUN 14, creatinine 0.71 Troponin 0.012 EKG done in the ER showed heart rate of 90, no ST segment elevation or depression seen, no T-wave inversions seen. Chest x-ray done in the ER showed no acute cardiac process Patient admitted to internal medicine service 04/22. Patient seen and examined. 2-D echo done showed no wall motion normality, normal systolic function. Cardiology cleared the patient for discharge PHYSICAL EXAMINATION: GENERAL: The patient is alert and oriented x3, not in any acute distress. Well developed, well nourished. HEENT: Pupils are round and equally reacting to light. EOMI. No scleral icterus. No conjunctival pallor. Normocephalic, atraumatic. No pharyngeal erythema. No thyromegaly. CARDIOVASCULAR: S1 and S2 present. No murmurs, rubs, or gallops. PULMONARY: Chest is clear to auscultation, no wheezing or crackles. ABDOMEN: Soft, nontender, nondistended, normoactive bowel sounds. No palpable organomegaly. MUSCULOSKELETAL: No joint swelling or deformity. EXTREMITIES: No cyanosis, clubbing, or pedal edema. NEUROLOGICAL: Gross neurological examination did not reveal any focal deficits. SKIN: No rashes. Dictation was produced using [employer] dictation software. please excuse any grammatical, word or spelling errors. Patient Condition at Discharge: Fair Plan - Discharge Summary Discharge Rx Participant: No New Discharge Prescriptions: Continue [facility] Loratadine [Alavert] 10 mg PO DAILY Latanoprost Ophth [Xalatan 0.005%] 1 drops BOTH EYES HS Brimonidine Tartrate [Alphagan P 0.2% Ophth Soln] 1 drops LEFT EYE BID Valsartan 320 mg PO DAILY Simvastatin 40 mg PO W/SUPPER amLODIPine [Norvasc] 5 mg PO DAILY Cholecalciferol [Vitamin D3 (25 Mcg = 1000 Iu)] 25 mcg PO DAILY Discharge Medication List Omeprazole [PriLOSEC] 20 mg PO AC-BRKFST 10/09/14 [History] Latanoprost Ophth [Xalatan 0.005%] 1 drops BOTH EYES HS 06/02/17 [History] Loratadine [Alavert] 10 mg PO DAILY 06/02/17 [History] Brimonidine Tartrate [Alphagan P 0.2% Ophth Soln] 1 drops LEFT EYE BID 02/13/20 [History] Valsartan 320 mg PO DAILY 02/13/20 [History] Simvastatin 40 mg PO W/SUPPER 12/09/21 [History] Cholecalciferol [Vitamin D3 (25 Mcg = 1000 Iu)] 25 mcg PO DAILY 04/21/23 [History] amLODIPine [Norvasc] 5 mg PO DAILY 04/21/23 [History] Follow up Appointment(s)/Referral(s): Yuridia Moreno MD [Primary Care Provider] - 1-2 days Kyle Hernadez DO [STAFF PHYSICIAN] - 1 Week Discharge Disposition: HOME SELF-CARE
== END 2023-04-22 11:55 | disposition home or self-care (01) ==
LOC: EC 20:50 → 6NMEDSUR 04-21 00:06
PROVIDERS: ADMIT Hospitalist; ATTEND Hospitalist
DX: R07.89 Other chest pain (principal); I10 Essential (primary) hypertension; E78.5 Hyperlipidemia, unspecified; K21.9 Gastro-esophageal reflux disease without esophagitis; E11.9 Type 2 diabetes mellitus without complications; Z87.891 Personal history of nicotine dependence; Z79.899 Other long term (current) drug therapy; Z88.5 Allergy status to narcotic agent
CPT/HCPCS: 99285; 36415; 93005; 93306; 85379; 80053; 83735; 84484 ×2; 85025; 85610; 85730; 71046; G0378 ×3; Q9957

== ENCOUNTER → 2023-06-06 | Outpatient (CLI) | payer BC ==
[2023-06-06 11:12] LABS: BUN/Creat Ratio 16.43 Ratio (12.00-20.00); Blood Urea Nitrogen 11.5 mg/dL (9.0-27.0); Calcium 9.6 mg/dL (8.7-10.3); Carbon Dioxide 30.5 mmol/L (21.6-31.8); Chloride 100 mmol/L (96-109); Glucose 114 mg/dL (70-110); Potassium 4.2 mmol/L (3.5-5.5); Sodium 142 mmol/L (135-145)
== END | disposition home or self-care (01) ==
LOC: LABWHC1 08:07
PROVIDERS: ATTEND Internal Medicine Interventional Cardiology
DX: I10 Essential (primary) hypertension (principal)
CPT/HCPCS: 36415; 80048

== ENCOUNTER → 2024-05-24 | Outpatient (CLI) | payer BC ==
[2024-05-24 15:19] LABS: Basophils # (A) 0.08 X 10*3/uL (0.00-0.10); Basophils % (A) 1.2 %; Eosinophils # (A) 0.21 X 10*3/uL (0.04-0.35); Eosinophils % (A) 3.2 %; HCT 38.6 % (37.2-46.3); HGB 12.8 g/dL (12.0-15.0); Lymphocytes # (A) 1.76 X 10*3/uL (0.90-5.00); Lymphocytes % (A) 26.9 %; MCH 30.5 pg (27.0-32.0); MCHC 33.2 g/dL (32.0-37.0); MCV 91.9 FL (80.0-97.0); Mean Platelet Volume 10.5 FL (9.5-12.2); Monocytes # (A) 0.54 X 10*3/uL (0.20-1.00); Monocytes % (A) 8.3 %; NRBC Per 100 WBC 0 X 10*3/uL (0.00-0.01); Neutrophils # (A) 3.92 X 10*3/uL (1.80-7.70); Neutrophils % (A) 59.9 %; Platelet Count 429 X 10*3/uL (140-440); RDW 12.4 % (11.5-14.5); WBC 6.54 X 10*3/uL (4.50-10.00)
[2024-05-24 15:37] LABS: ALT 32 U/L (8-44); AST 25 U/L (13-35); Albumin 4.3 g/dL (3.8-4.9); Albumin/Globulin Ratio 1.79 Ratio (1.60-3.17); Alkaline Phosphatase 106 U/L (41-126); Blood Urea Nitrogen 25.3 mg/dL (9.0-27.0); Calcium 9.6 mg/dL (8.7-10.3); Carbon Dioxide 26.8 mmol/L (21.6-31.8); Chloride 103 mmol/L (96-109); Chol/HDL Ratio 2.32 Ratio; Globulin 2.4 g/dL (1.6-3.3); Glucose 106 mg/dL (70-110); LDL Cholesterol,Calculated 74.4 mg/dL (0.0-131.0); Potassium 4.4 mmol/L (3.5-5.5); Sodium 140 mmol/L (135-145); T4, Free (Free Thyroxine) 1.44 ng/dL (0.80-1.80); Total Bilirubin 0.3 mg/dL (0.3-1.2); Total Protein 6.7 g/dL (6.2-8.2)
[2024-05-24 21:28] LABS: Microalbumin Creatinine Ratio <8 mg/g Cr (0-30)
== END | disposition home or self-care (01) ==
LOC: LABWHC1 08:39
PROVIDERS: ATTEND Family Medicine
DX: H81.11 Benign paroxysmal vertigo, right ear (principal); E11.65 Type 2 diabetes mellitus with hyperglycemia; E78.5 Hyperlipidemia, unspecified
CPT/HCPCS: 36415; 80053; 80061; 82043; 82570; 83036; 84439; 84443; 85025; 86038

== ENCOUNTER → 2024-06-06 | Outpatient (CLI) | payer BC ==
--- NOTE | 2024-06-06 12:11 | US ---
EXAMINATION TYPE: US carotid duplex BILAT DATE OF EXAM: 06/06/2024 COMPARISON: US 07/12/22 CLINICAL INDICATION: Female, 58 years old with history of R09.89 OTH SYMPTOMS AND SIGNS INVOLVING THE CIRC A; Bruit. Prior smoker, hx hypertension, hyperlipidemia, diabetes. Additional History: R09.89 Carotid bruit TECHNIQUE: Grayscale, color Doppler and spectral Doppler evaluation of the bilateral carotid systems and vertebral arteries. Indirect Doppler criteria was utilized. FINDINGS: EXAM MEASUREMENTS: RIGHT: Peak Systolic Velocity (PSV) cm/sec ----- Right CCA: 99.7 ----- Right ICA: 107.9 ----- Right ECA: 106.4 ICA/CCA ratio: 1.1 RIGHT: End Diastole cm/sec ----- Right CCA: 28.5 ----- Right ICA: 39.1 ----- Right ECA: 17.6 LEFT: Peak Systolic Velocity (PSV) cm/sec ----- Left CCA: 88.6 ----- Left ICA: 99.1 ----- Left ECA: 87.5 ICA/CCA ratio: 1.1 LEFT: End Diastole cm/sec ----- Left CCA: 28.1 ----- Left ICA: 38.3 ----- Left ECA: 0.0 VERTEBRALS (direction of flow): Right Vertebral: Antegrade Left Vertebral: Antegrade Rhythm: Normal [employer] NOTES: No elevated velocities. Great amount of shadowing plaque seen within right pro x-mid ICA - color defect. Plaque seen bilateral bulbs and left ICA. IMPRESSION: Right: Less than 50% stenosis of the carotid bifurcation. Left: Less than 50% stenosis of the carotid bifurcation. Criteria for Assigning % of Stenosis / Diameter reduction (Estimation based on the indirect measurements of the internal carotid artery velocities (ICA PSV). 1. Normal (no stenosis)=ICA PSV < 125 cm/s: ratio < 2.0: ICA EDV<40 cm/s. 2. Less than 50% stenosis=ICA PSV < 125 cm/s: ratio < 2.0: ICA EDV<40 cm/s. 3. 50 to 69% stenosis=ICA PSV of 125 to 230 cm/s: ration 2.0 ? 4.0: ICA EDV 40-100 cm/s. 4. Greater than 70% stenosis to near occlusion= ICA PSV > 230 cm/s: ratio > 4.0: ICA EDV > 100 cm/s. 5. Near occlusion= ICA PSV velocities may be low or undetectable: variable ratio and ICA EDV. 6. Total occlusion=unable to detect flow. [facility], , 06/06/2024 12:08 PM
--- NOTE | 2024-06-06 12:21 | CTL ---
EXAMINATION TYPE: CT Low Dose Lung DATE OF EXAM: 06/06/2024 11:42 AM COMPARISON: None. CLINICAL INDICATION: Female, 58 years old with history of Z12.2, Z87.891; HISTORY OF SMOKER, history of tobacco use. TECHNIQUE: Multiple axial non-contrast scans were obtained from approximately the lung apices through the upper abdomen. Coronal and sagittal reformatted images were obtained. Low dose technique was uti lized. MIP were created on a separate workstation and submitted for review. CT DLP: 72 mGycm, Automated exposure control for dose reduction was used. CT Contrast: Contrast used: None Oral contrast used: None FINDINGS: Lack of intravenous contrast and low dose technique limits the evaluation of the vascular and soft ti ssue structures. LUNGS: No evidence of pulmonary fibrosis. No evidence of focal consolidation, pneumothorax or pleural effusion. Centrilobular emphysema changes. Nodules: RUL: None. RML: None. RLL: None. CHAD: None. LLL: None. AIRWAY: Patent and unremarkable. HEART: Size within normal limits. Mild coronary artery calcifications present. MEDIASTINUM: No gross evidence of adenopathy. VASCULATURE: No aortic aneurysm. MUSCULOSKELETAL: No acute osseous abnormalities fixation hardware in the cervical spine appears intac t. SOFT TISSUES/LYMPH NODES: Unremarkable. LOWER NECK: No significant findings. UPPER ABDOMEN: Diffuse low-attenuation to the liver parenchyma. IMPRESSION: 1. No clinically significant pulmonary nodules. 2. Mild emphysema. 3. Hepatic steatosis. CT LUNG RAD AND CT CHEST RECOMMENDATION: Lung-Rad 2 Benign Appearance or Behavior: Continue annual sc reening with LDCT in 12 months. S Modifier (other clinically significant findings): None Recommend smoking cessation (if current smoker), or continuation of smoking cessation (if prior smoke r). Annual screening for lung cancer with low-dose computed tomography is recommended in adults ages 55 to 77 years who have a 30 pack-year smoking history and currently smoke or have quit within the pa st 15 years. Screening should be discontinued once a person has not smoked for 15 years or develops a health problem that substantially limits life expectancy or the ability or willingness to have curat reji lung surgery. Lung rads 2021 [email or web address] [facility], , 06/06/2024 12:19 PM
== END | disposition home or self-care (01) ==
LOC: RADUSWWP 10:57
PROVIDERS: ATTEND Family Medicine
DX: Z12.2 Encounter for screening for malignant neoplasm of respiratory organs (principal); K76.0 Fatty (change of) liver, not elsewhere classified; I65.23 Occlusion and stenosis of bilateral carotid arteries; J43.2 Centrilobular emphysema; Z87.891 Personal history of nicotine dependence; R09.89 Other specified symptoms and signs involving the circulatory and respiratory systems
CPT/HCPCS: 71271; 93880

== ENCOUNTER → 2024-08-07 | Outpatient (CLI) | payer BC ==
--- NOTE | 2024-08-07 11:17 | US ---
EXAMINATION TYPE: US thyroid st tissue head/neck DATE OF EXAM: 08/07/2024 COMPARISON: US 06/13/2020 CLINICAL INDICATION: Female, 59 years old with history of E04.9 NONTOXIC GOITER, UNSPECIFIED; Follow- up TECHNIQUE: Grayscale and color Doppler imaging of the thyroid gland. FINDINGS: GLAND SIZE: Right Lobe: 5.7 x 1.0 x 1.4 cm Overall Parenchyma: Homogeneous Left Lobe: 4.4 x 1.5 x1.3 cm Overall Parenchyma: Homogeneous Isthmus Thickness: 0.4 cm NODULES RIGHT: # of nodules measured on right: 0 2 mm nodule does not meet criteria for classification. LEFT: # of nodules measured on left: 0 ISTHMUS: # of nodules measured in the isthmus: 0 Bilateral neck scanned, no evidence of lymphadenopathy. IMPRESSION: No clinically significant thyroid nodules. TI-RADS assessment score and recommendation for follow-up based on appropriate scoring and treatment protocols. TR3: If nodule size is ? 2.5 cm, FNA is recommended. If nodule size is ? 1.5 cm, follow-up imaging at 1, 3, and 5 years is recommended. TR4: If nodule size is ? 1.5 cm, FNA is recommended. If nodule size is ? 1.0 cm, follow-up imaging at 1, 2, 3, and 5 years is recommended. TR5: If nodule size is ? 1.0 cm, FNA is recommended. If nodule size is ? 0.5 cm, annual follow-up for up to 5 years is recommended. TIRADS Classification Table TR1 0 Benign No FNA TR2 2 Not suspicious No FNA TR3 3 Mildly suspicious If ?2.5 cm: FNA If ?1.5 cm:Follow up at 1,3 ,5 years TR4 4-6 Moderately suspicious If ?1.5cm: FNA If ?1 cm:Follow up at 1,3 ,5 years TR5 7 or more Highly suspicious If ?1 cm: FNA If ?0.5 cm follow annually for 5 years TR 1 thyroid nodules have a 0.3 % risk of malignancy. TR 2 thyroid nodules have a 1.5 % risk of malignancy. TR 3 thyroid nodules have a 4.8 % risk of malignancy. TR 4 thyroid nodules have a 9.1 % risk of malignancy. TR 5 thyroid nodules have a 35 % risk of malignancy. [email or web address] [facility], , 08/07/2024 11:15 AM
== END | disposition home or self-care (01) ==
LOC: RADUSWWP 10:17
PROVIDERS: ATTEND Family Medicine
DX: E04.9 Nontoxic goiter, unspecified (principal)
CPT/HCPCS: 76536

== ENCOUNTER → 2024-08-16 | Outpatient (CLI) | payer BC ==
--- NOTE | 2024-08-16 08:37 | MM ---
Reason for Exam: Screening (asymptomatic). Last mammogram was performed 1 year(s) and 11 month(s) ago. Patient History: Menarche at age 14. First Full-Term at age 27. Postmenopausal. Risk Values: Kaylan 5 year model risk: 1.4%. NCI Lifetime model risk: 7.6%. Prior Study Comparison: 03/13/2020 Bilateral Screening Mammogram, [facility]. 09/22/2021 Bilateral MG screening mammo w CAD, [facility]. 09/23/2022 Bilateral MG screening mammo w CAD, [facility]. Tissue Density: The breasts are heterogeneously dense, which may obscure small masses. Findings: Analyzed By CAD. Right breast: There is no suspicious group of microcalcifications or new suspicious mass. Left breast: There is no suspicious group of microcalcifications or new suspicious mass. Overall Assessment: Negative, BI-RAD 1 Management: Screening Mammogram of both breasts in [address] [facility] will attempt to contact patient to return for supplemental views and ultrasound if indicated. Patient should continue monthly self-breast exams. A clinical breast exam by your physician is recommended on an annual basis. This exam should not preclude additional follow-up of suspicious palpable abnormalities. Note on Kaylan scores and lifetime risk: 1. A Kaylan score greater than 3% is considered moderate risk. If this is the case, consider specialist referral to assess eligibility for a risk reducing agent. 2. If overall lifetime risk for the development of breast cancer is 20% or higher, the patient may qualify for future screening with alternating mammogram and breast MRI. [facility], , 08/16/2024 8:34 AM. Electronically signed and approved by: Allan Philippe DO
--- NOTE | 2024-08-16 12:13 | BD ---
EXAMINATION TYPE: Axial Bone Density DATE OF EXAM: 08/16/2024 CLINICAL HISTORY: 59 years old Female. ICD-10 CODE: M85.9 DISORDER OF BONE DENSITY AN , Additional History: Height: 60.5 Weight: 156 FRAX RISK QUESTIONS: 3. Menopause before 45: no RISK FACTORS colitis, allergies, HISTORY OF: MEDICATIONS: reflux meds, bp meds, statins for cholesterol, colitis meds, vit d EXAM MEASUREMENTS: Bone mineral densitometry was performed using the [employer] System. Bone mineral density as measured about the Lumbar spine is: ----- L1-L4(G/cm2): 0.992 T Score Values are as follows: ----- L1: -1.2 ----- L2: -2.4 ----- L3: -1.4 ----- L4: -1.4 ----- L1-L4: -1.6 Z Score Values are as follows: ----- L1: -0.3 ----- L2: -1.5 ----- L3: -0.4 ----- L4: -0.5 ----- L1-L4: -0.6 Bone mineral density has: Decreased -2.3% since study of: 09.22.2021 Bone mineral density about the R hip (g/cm2): 0.779 Bone mineral density about the L hip (g/cm2): 0.870 T Score values are as follows: -----R Neck: -1.9 -----L Neck: -1.5 -----R Total: -1.8 -----L Total: -1.1 Z Score values are as follows: -----R Neck: -0.9 -----L Neck: -0.5 -----R Total: -1.1 -----L Total: -0.4 Bone mineral density has: Decreased -0.2% since study of: 09.22.2021 FRAX%s: The graph provided illustrates a 16.8% chance for a major osteoporotic fx and a 1.8% chance f or the hips probability for fx in 10 years time. IMPRESSION: Osteopenia (T Score between -2.5 and -1). There is slightly increased risk of fracture and the patient may be considered for treatment. Re-Screen 2-5 years. NOTE: T-SCORE=SD OF THE YOUNG ADULT MEAN. [facility], , 08/16/2024 12:10 PM
== END | disposition home or self-care (01) ==
LOC: RADBDWWP 07:50
PROVIDERS: ATTEND Family Medicine
DX: Z12.31 Encounter for screening mammogram for malignant neoplasm of breast (principal); M85.89 Other specified disorders of bone density and structure, multiple sites; R92.333 Mammographic heterogeneous density, bilateral breasts; Z78.0 Asymptomatic menopausal state
CPT/HCPCS: 77067; 77080